=== PATIENT | female | born 1935 | race Caucasian/White ===

== ENCOUNTER → 2023-06-10 | Outpatient (CLI) | payer MEDICARE, SELFPAY ==
[2023-06-10 12:25] LABS: Absolute Lymphocyte Count 1.94 X10^3/uL (0.83-4.51); Absolute Neutrophil Count 5.2 X10^3/uL (2.0-7.7); Basophil# 0.05 X10^3/uL; Basophil% 0.6 % (0-1); Eosinophil# 0.32 X10^3/uL; Eosinophils% 3.9 % (0-5); Hematocrit 34.1 % (37-47); Hemoglobin 11.3 g/dL (12.0-15.0); Lymphocyte # 1.94 X10^3/ul (0.83-4.51); Lymphocyte % 23.9 % (19-41); Mean Corp Hgb Conc 33.1 g/dL (32-36); Mean Corpuscular Hgb 30.5 pg (27.0-32.0); Mean Corpuscular Volume 92.2 fL (81-99); Mean Platelet Vol. 11.8 fl (6.2-12.0); Monocyte# 0.62 X10^3/uL; Monocyte% 7.6 % (0-10); NRBC Flagged by Analyzer 0 % (0-5); Neutrophil # 5.17 X10^3/uL (2.7-7.7); Neutrophil % 63.8 % (47-70); Platelet Count 243 K/mm3 (150-450); RBC Distribution Width CV 13.6 % (11.6-14.6); RBC Distribution Width SD 46.5 fl (35.1-43.9); White Blood Count 8.1 K/mm3 (4.4-11.0)
[2023-06-10 13:04] LABS: Hemoglobin A1c 5.6 % (3.8-5.6)
[2023-06-10 13:06] LABS: ALB/GLOB Ratio 1.4 RATIO (0.9-2.4); AST(SGOT) 25 U/L (15-37); Alanine Aminotransfer ALT/SGPT 23 U/L (13-56); Albumin, Serum 4.1 g/dL (3.2-5.0); Alkaline Phosphatase 76 U/L (45-117); Anion Gap 8 (5-15); BUN 9 mg/dL (7-18); BUN/Creat Ratio 9.4 RATIO (10-20); Chloride 105 mmol/L (98-107); Cholesterol 119 mg/dL (200); Creatinine, Serum 0.95 mg/dL (0.55-1.02); EST Glomerular Filtration Rate 59 mL/min (>60); Est Glom Filt Rate - Afr Amer 71 mL/min (>60); Free T3 2.2 pg/mL (2.18-3.98); Glucose 80 mg/dL (74-106); High Density Lipoprotein 43 mg/dL; Potassium 3.3 mmol/L (3.5-5.1); Protein, Total 7.1 g/dL (6.4-8.2); Sodium Level 137 mmol/L (136-145); T4 Free Direct 1.39 ng/dL (0.76-1.46); Thyroid Stim Hormone (TSH) 2.92 uIU/mL (0.358-3.74); Triglycerides 92 mg/dL; Very Low Density Lipoprotein 18 mg/dL (5-40)
[2023-06-10 13:11] LABS: Microalbumin,Random Urine < 5.0 mg/L (NO RANGE EST.)
== END | disposition home or self-care (01) ==
LOC: BFHLAB 10:30
PROVIDERS: PCP Family Medicine; Referring Provider Family Medicine; Visit Provider Family Medicine
DX: E03.9 Hypothyroidism, unspecified (principal); E11.9 Type 2 diabetes mellitus without complications; R06.00 Dyspnea, unspecified; Z51.81 Encounter for therapeutic drug level monitoring; I25.10 Atherosclerotic heart disease of native coronary artery without angina pectoris; E78.5 Hyperlipidemia, unspecified
CPT/HCPCS: 36415; 80053; 80061; 82043; 82570; 83036; 84439; 84443; 84481; 85025

== ENCOUNTER 2023-09-24 12:55 | Emergency (ER) | payer MEDICARE, OTHER, SELFPAY ==
[2023-09-24 12:57] VITALS: BP 170/78; PULSE 62; RESP 18; TEMP 36.6; O2SAT 100; BMI 27.1
--- NOTE | 2023-09-24 13:13 | CT_ITS ---
STUDY: CT CERVICAL SPINE WITHOUT CONTRAST REASON FOR EXAM: Female, 88 years old. Fall RADIATION DOSAGE (If Supplied By Facility): CTDIvol = ( 18.63 ) mGy, DLP = ( 370.52 ) mGycm TECHNIQUE: High resolution transaxial imaging was performed without contrast material. Sagittal and coronal images were reconstructed. Individualized dose optimization techniques were used for this CT. COMPARISON: None FINDINGS: Normal craniovertebral junction. There are degenerative changes of the anterior atlantoaxial articulation. Normal odontoid process. There is straightening of the normal cervical lordosis. Normal vertebral bodies and posterior osseous elements. C2-3: Normal endplates. Normal disc height and morphology. Normal central canal and intervertebral neuroforamina. C3-4: Mild degree of disc space narrowing. Uncovertebral arthrosis. Bilateral neural foraminal stenosis. C4-5: Mild degree of disc space narrowing and spondylosis. Uncovertebral arthrosis. Bilateral neural foraminal stenosis worse on the left side. C5-6: Moderate degree of disc space narrowing and spondylosis. Uncovertebral arthrosis. Bilateral neural foraminal stenosis right greater than left. C6-7: Anterior spondylosis. C7-T1: Normal endplates. Normal disc height and morphology. Normal central canal and intervertebral neuroforamina. Atherosclerotic calcification of the carotid bifurcations. CT/Spine Cervical without Contras IMPRESSION: Multilevel degenerative changes, as described above. Electronically Signed: Puneet Olivas MD at 14:31 EDT ,
--- NOTE | 2023-09-24 13:13 | CT_ITS ---
STUDY: CT BRAIN WITHOUT CONTRAST REASON FOR EXAM: Female, 88 years old. Confusion RADIATION DOSAGE (If Supplied By Facility): CTDIvol = ( 47.06 ) mGy, DLP = ( 890.33 ) mGycm TECHNIQUE: Transaxial CT imaging of the brain was performed without administration of intravenous contrast material. Individualized dose optimization techniques were used for this CT. COMPARISON: No relevant priors. FINDINGS: Normal soft tissue structures. Normal calvarium. There is mild cerebral atrophy with widening of the extra-axial spaces and ventricular dilatation. There are areas of decreased attenuation within the white matter tracts of the supratentorial brain, consistent with microvascular disease changes. Normal basal ganglia and thalami. Normal brainstem. Normal cerebellum. There is no intracranial hemorrhage. There are no findings of an acute ischemic infarction. Atherosclerotic calcification of the vertebral arteries and cavernous portions of the internal carotid arteries bilaterally. Normal visualized paranasal sinuses. CT/Brain/Head without Contrast IMPRESSION: Chronic involutional changes of the brain. Electronically Signed: Puneet Olivas MD at 14:28 EDT ,
--- NOTE | 2023-09-24 13:21 | EX.ED.DYSGE1 ---
HPI <SANDRINE Benson - Last Filed: 09/24/23 17:29> History of Present Illness Chief Complaint: Back Narrative Narrative: 88-year-old female was brought in by EMS after an episode of confusion. Her daughter provides history because the patient has dementia. The patient has memory issues but normally ambulates and performs ADLs independently. This morning she used the bathroom and then went back to bed. The daughter checked on her around 9 am and she sat up on the edge of the bed and said she was fine and the daughter laid out her clothes for her. 30 minutes later she came back and she was still sitting on the edge of the bed with her arms and legs extended and stiff. The daughter and her later back in bed and she then was able to respond but did not want to talk much. There was no seizure activity. After lying her back down in bed she complained of back pain. She does have history of back issues and multiple surgeries. There was no evidence of a fall. She has had no recent illness. PFSH <SANDRINE Benson - Last Filed: 09/24/23 17:29> [facility] Home Medications ?Medication ?Instructions ?Recorded ?Last Taken ?Type tramadol 50 mg tablet 50 mg PO Q8H PRN pain 2 days #6 09/24/23 Unknown Rx tabs Allergy/AdvReac Type Severity Reaction Status Date / Time No Known Allergies Allergy Verified 09/24/23 12:57 Social History Smoking Status: Never smoker ROS <SANDRINE Benson - Last Filed: 09/24/23 17:29> ROS ED ROS Narrative Unable to obtain due to confusion EXAM <SANDRINE Benson - Last Filed: 09/24/23 17:29> Physical Exam Narrative Exam Narrative: CONST: Patient sitting in no acute distress. EYES: Normal inspection. HEAD: Head normocephalic atraumatic, no raccoon eyes or quinteros sign, no hemotympanum, no nasal septal hematoma, no CSF otorrhea or rhinorrhea. ENT: Normal inspection, moist mucous membranes. NECK: Normal inspection. No midline spinal tenderness, no step off or crepitus. RESP: No respiratory distress, CTAB. CVS: Regular rate and rhythm, no murmur, no gallop. ABD: Soft and nontender, no guarding or rebound, nondistended. Back: Normal inspection, no midline tenderness. Healed midline thoracic surgical scars. SKIN: Color normal, no rash, warm, dry, intact. EXTREMITIES: Normal appearance, moving upper and lower extremities, no bony tenderness, 2+ radial DP pulses. NEURO: Alert to self and place. Follows commands. Does not know age or year. PSYCH: Normal affect. Const Vital Signs: 09/24/23 12:57 09/24/23 15:06 09/24/23 17:00 Temperature 97.8 F Temperature Source Temporal Pulse Rate 62 64 Respiratory Rate 18 16 Blood Pressure 170/78 H Blood Pressure Mean 108 Pulse Ox 100 98 97 Oxygen Delivery Method Room Air Room Air 09/24/23 17:32 Temperature 97.6 F L Temperature Source Pulse Rate 78 Respiratory Rate 16 Blood Pressure 141/76 H Blood Pressure Mean 97 Pulse Ox 98 Oxygen Delivery Method <Dr. Ta Back DO - Last Filed: 09/24/23 19:28> Physical Exam Const Vital Signs: 09/24/23 12:57 09/24/23 15:06 09/24/23 17:00 Temperature 97.8 F Temperature Source Temporal Pulse Rate 62 64 Respiratory Rate 18 16 Blood Pressure 170/78 H Blood Pressure Mean 108 Pulse Ox 100 98 97 Oxygen Delivery Method Room Air Room Air 09/24/23 17:32 Temperature 97.6 F L Temperature Source Pulse Rate 78 Respiratory Rate 16 Blood Pressure 141/76 H Blood Pressure Mean 97 Pulse Ox 98 Oxygen Delivery Method [facility] <SANDRINE Benson - Last Filed: 09/24/23 17:29> [facility] Narrative Medical decision making narrative: History gathered from: Patient, daughter, EMS Daughter reports patient was sitting on the edge of the bed and had an episode where she held out her arms and legs in a stiff position. There was no loss of consciousness or convulsions. She has dementia and seems more confused than normal. During my initial exam she is awake and alert x 2 with no focal neurological deficits. No signs of injury. Before her daughter arrived the initial EMS report was that she had a fall so I ordered imaging of her brain, cervical spine and back as she had reported back pain (although she did not have any spinal tenderness on exam she has history of multiple back surgeries). CT and x-ray imaging are all negative for acute findings. CBC and BMP do not show any significant abnormalities that would cause her symptoms. Urinalysis negative. EKG is nonischemic and serial troponins negative. Patient complained of back pain while here. Her family states she has a internal spinal stimulator that they think is no longer functioning. She had a pain management doctor out of state that since she is moved here is not established with a pain specialist. She is taking Tylenol and Lyrica. She was given a dose of Tylenol here and is able to ambulate and family is comfortable taking her home. Her daughter really wanted her to have something stronger for breakthrough pain so I prescribed a short course of tramadol. I discussed side effects and risks including sedation falls confusion etc. and she states she will monitor. I will call the family physician for follow-up. She was discharged in stable condition. Lab Data Attestation: I reviewed the patient's lab results. Labs: Laboratory Results - last 24 hr 09/24/23 09/24/23 09/24/23 13:26 15:27 16:50 WBC 11.1 H RBC 4.16 L Hgb 12.7 Hct 36.4 L MCV 87.5 MCH 30.5 MCHC 34.9 RDW Std Deviation 42.5 RDW Coeff of Ross 13.2 Plt Count 244 MPV 10.5 Immature Gran % (Auto) 0.900 Neut % (Auto) 72.7 H Lymph % (Auto) 15.9 L Schuyler % (Auto) 8.7 Eos % (Auto) 1.3 Baso % (Auto) 0.5 Absolute Neuts (auto) 8.1 H Absolute Lymphs (auto) 1.77 Nucleated RBC % 0 Sodium 139 Potassium 3.4 L Chloride 106 Carbon Dioxide 22.0 Anion Gap 11 BUN 16 Creatinine 1.11 H Estim Creat Clear Calc 36.62 Est GFR (MDRD) Af Amer 60 Est GFR (MDRD) Non-Af 50 L BUN/Creatinine Ratio 14.4 Glucose 83 Calcium 9.8 Troponin I High Sens 18 20 Urine Color Straw Urine Clarity Clear Urine pH 8.0 Ur Specific [place] 1.010 Urine Protein Negative Urine Glucose (UA) Normal Urine Ketones Negative Urine Occult Blood Negative Urine Nitrite Negative Urine Bilirubin Negative Urine Urobilinogen Normal Ur Leukocyte Esterase Negative Urine RBC 0-5 SEEN Urine WBC 0-5 SEEN Ur Squamous Epith Cells 0-5 SEEN Urine Bacteria 1+ Urine Mucus 0 SEEN Radiography Diagnostic Testing: Clinical Impression(s) from Imaging Studies Brain CT 09/24/23 13:13 IMPRESSION: Chronic involutional changes of the brain. Electronically Signed: Puneet Olivas MD at 14:28 EDT , Cervical Spine CT 09/24/23 13:13 IMPRESSION: Multilevel degenerative changes, as described above. Electronically Signed: Puneet Olivas MD at 14:31 EDT , Chest X-Ray 09/24/23 14:40 IMPRESSION: Hyperinflation. The lungs are clear. Electronically Signed: Puneet Oliavs MD at 15:03 EDT , Lumbar Spine X-Ray 09/24/23 14:40 IMPRESSION: Degenerative changes of the spine, as detailed above. Loss of the normal lumbar lordosis. Electronically Signed: Puneet Olivas MD at 15:02 EDT , Thoracic Spine X-Ray 09/24/23 14:40 IMPRESSION: Loss of the normal thoracic kyphosis. Demineralization of the vertebrae with multilevel spondylosis and disc space narrowing. Electronically Signed: Puneet Olivas MD at 15:01 EDT , ED attending interpretation 1 view chest x-ray shows normal heart size, no evidence of infiltrate. ED attending interpretation of thoracic and lumbar spine show no acute fractures. EKG Initial EKG: Attestation: I personally reviewed and interpreted this EKG as follows: Interpretation: Sinus Rhythm and No Acute Injury Pattern Comments: Sinus bradycardia with sinus arrhythmia at 59 bpm, occasional PVCs Incomplete RBBB No acute STEMI criteria Repeat EKG at 1559 has no significant change Sinus rhythm 71 bpm occasional PVCs <Dr. Ta Back, DO - Last Filed: 09/24/23 19:28> [facility] Lab Data Labs: Laboratory Results - last 24 hr 09/24/23 09/24/23 09/24/23 13:26 15:27 16:50 WBC 11.1 H RBC 4.16 L Hgb 12.7 Hct 36.4 L MCV 87.5 MCH 30.5 MCHC 34.9 RDW Std Deviation 42.5 RDW Coeff of Ross 13.2 Plt Count 244 MPV 10.5 Immature Gran % (Auto) 0.900 Neut % (Auto) 72.7 H Lymph % (Auto) 15.9 L Schuyler % (Auto) 8.7 Eos % (Auto) 1.3 Baso % (Auto) 0.5 Absolute Neuts (auto) 8.1 H Absolute Lymphs (auto) 1.77 Nucleated RBC % 0 Sodium 139 Potassium 3.4 L Chloride 106 Carbon Dioxide 22.0 Anion Gap 11 BUN 16 Creatinine 1.11 H Estim Creat Clear Calc 36.62 Est GFR (MDRD) Af Amer 60 Est GFR (MDRD) Non-Af 50 L BUN/Creatinine Ratio 14.4 Glucose 83 Calcium 9.8 Troponin I High Sens 18 20 Urine Color Straw Urine Clarity Clear Urine pH 8.0 Ur Specific [place] 1.010 Urine Protein Negative Urine Glucose (UA) Normal Urine Ketones Negative Urine Occult Blood Negative Urine Nitrite Negative Urine Bilirubin Negative Urine Urobilinogen Normal Ur Leukocyte Esterase Negative Urine RBC 0-5 SEEN Urine WBC 0-5 SEEN Ur Squamous Epith Cells 0-5 SEEN Urine Bacteria 1+ Urine Mucus 0 SEEN Radiography Diagnostic Testing: Clinical Impression(s) from Imaging Studies Brain CT 09/24/23 13:13 IMPRESSION: Chronic involutional changes of the brain. Electronically Signed: Puneet Olivas MD at 14:28 EDT , Cervical Spine CT 09/24/23 13:13 IMPRESSION: Multilevel degenerative changes, as described above. Electronically Signed: Puneet Olivas MD at 14:31 EDT , Chest X-Ray 09/24/23 14:40 IMPRESSION: Hyperinflation. The lungs are clear. Electronically Signed: Puneet Olivas MD at 15:03 EDT , Lumbar Spine X-Ray 09/24/23 14:40 IMPRESSION: Degenerative changes of the spine, as detailed above. Loss of the normal lumbar lordosis. Electronically Signed: Puneet Olivas MD at 15:02 EDT , Thoracic Spine X-Ray 09/24/23 14:40 IMPRESSION: Loss of the normal thoracic kyphosis. Demineralization of the vertebrae with multilevel spondylosis and disc space narrowing. Electronically Signed: Puneet Olivas MD at 15:01 EDT , Treatment and Re-Evaluation :: I have personally performed a face to face assessment of the patient and have reviewed the LISA Note. I performed a substantive portion of the visit including all aspects of the following. My yancey findings include: History: Patient presents with confusion that became worse today. Patient has a history of dementia but normally can function at home without difficulty. Family states that they laid her clothes out for her to get dressed. When they went to recheck her to see if she had gotten dressed, she was sitting on the bed with her arms and legs extended. Family states patient is more confused today. Family denies any fevers or chills. Family denies any falls however, EMS reports that there was a fall. Patient admits to some chest pressure and heaviness. Patient denies any shortness of breath. Patient denies any urinary complaints. Exam: Vital signs are stable except for an elevated blood pressure of 170/78. Patient is afebrile. Patient is in no acute distress. Oral mucosa is pink and moist. Neck is supple. Trachea is midline. There is no JVD. Heart was regular rate and rhythm. Lungs are clear and equal bilaterally. Abdomen is soft. Bowel sounds are normal. There is no tenderness. Cranial nerves II through XII are intact. There are no focal motor or sensory deficits noted. Medical Decision Making: Differential diagnosis includes cardiac dysrhythmia, cardiac ischemia, stroke, fall, intracranial bleeding, lumbar fracture, thoracic fracture, pneumonia, urinary tract infection, and electrolyte abnormality. EKG will be obtained to assess for cardiac dysrhythmia and cardiac ischemia. Chest x-ray will be obtained to assess for pneumonia and pneumothorax. Lumbar spine x-rays will be obtained to assess for fracture and spondylolisthesis. Thoracic spine x-rays will be obtained to assess for fracture. CT scan of the brain will be obtained to assess for intracranial bleeding and stroke. CT scan of the cervical spine will be obtained to assess for cervical spine fracture and spondylolisthesis. CBC will be obtained to assess for leukocytosis and anemia. Basic metabolic profile will be obtained to assess for electrolyte abnormality and renal function. Urinalysis will be obtained to assess for urinary tract infection and hematuria. High-sensitivity troponin will be obtained to assess for cardiac ischemia. EKG was obtained. On my independent interpretation, it showed sinus bradycardia with a rate of 59. There is an incomplete right bundle branch block pattern noted. There are no acute ST or T wave changes noted. Portable 1 view chest x-ray was obtained. On my independent interpretation, lung matthews are clear. There is normal cardiac silhouette. Bony thorax is normal. There is no acute process noted. Radiologist also interpreted the x-ray and agrees. X-rays of the thoracic spine were obtained. There are 4 views. On my independent interpretation, there is no acute fracture or spondylolisthesis noted. There are some degenerative changes noted. Radiologist also interpreted the x-rays and agrees. X-rays of the lumbar spine were obtained. There are 2 views. There is a scoliosis noted. There is no acute fracture noted. There are degenerative changes noted. Radiologist also interpreted the x-rays and agrees. CT scan of the brain was obtained. There is no acute intracranial abnormality. There are chronic involutional changes noted. This was interpreted by the radiologist and was also independently reviewed by myself. CT scan of the cervical spine was obtained. There is no acute fracture or spondylolisthesis noted. This was interpreted by the radiologist and was also independently reviewed by myself. CBC was reviewed. There is a slight leukocytosis of 11.1. The remainder was within normal limits. Basic metabolic profile was reviewed and was essentially within normal limits. Initial high-sensitivity troponin was reviewed and was normal at 18. Urinalysis was reviewed. There is no evidence of urinary tract infection or hematuria. Patient was able to ambulate here in the emergency department with a walker. Family is comfortable taking the patient home. Patient and family were instructed to follow-up with her primary care physician in 5 to 7 days. Patient and family understood and were agreeable with the plan. All questions were answered. Discharge Plan Triage Chief Complaint: Back ED Midlevel Provider: Octavia Reina ED Provider: Ta Back Dx/Rx/DC Orders Clinical Impression: Chronic back pain, History of dementia Instructions: Back Basics: A Healthy Spine Prescriptions: New tramadol 50 mg tablet 50 mg PO Q8H PRN (Reason: pain) 2 Days Qty: 6 0RF Primary Care Provider: Octavia Goins Referrals: Octavia Goins DO [Primary Care Provider] - Activity Restrictions/Additional Instructions: Her testing today does not show any abnormalities to explain the episode she had this morning. I recommend Tylenol as needed for her back pain and follow-up with her primary care doctor. If she has new or worsening symptoms please come back for reevaluation. Print Language: Egyptian Disposition Disposition: Home, Self Care Discharge Date/Time: 09/24/23 17:33
--- NOTE | 2023-09-24 13:33 | EKG12_ITS ---
Test Reason : Blood Pressure : / mmHG Vent. Rate : 059 BPM Atrial Rate : 059 BPM P-R Int : 196 ms QRS Dur : 098 ms QT Int : 474 ms P-R-T Axes : -28 040 067 degrees QTc Int : 469 ms Sinus bradycardia with sinus arrhythmia with occasional Premature ventricular complexes Incomplete right bundle branch block Septal infarct , age undetermined Abnormal ECG Confirmed by DARREN RIVERA, WILFRED ([id number]), supervising film or videotape editor MALICK BARONE ([id number]) on 09/27/2023 9:45:08 AM Referred By: Confirmed By:IVIS BANKS MD
--- NOTE | 2023-09-24 13:40 | NURSING ---
NO OLD EKGS
[2023-09-24 13:48] LABS: Mucous, Urine 0 SEEN /hpf (<or=2+)
[2023-09-24 14:08] LABS: Color, Urine Straw (Yellow); Glucose, Dipstick Normal (Normal); Ketone-Dipstick Negative (Negative); Leukocyte Esterase-Dipstick Negative /ul (Negative); Nitrite-Dipstick Negative (Negative); Occult Blood-Urine Negative /ul (Negative); Protein-Dipstick Negative (Negative); Urine Bilirubin Dipstick Negative (Negative); Urine Clarity Clear (Clear); Urine Urobilinogen Normal (Normal)
[2023-09-24 14:30] LABS: Red Blood Cells-Urine 0-5 SEEN /hpf (0-5); White Blood Cells 0-5 SEEN /hpf (0-5)
[2023-09-24 14:31] LABS: Bacteria 1+ /hpf (None Seen); Squamous Epithelial Cells - UA 0-5 SEEN /hpf (5-10)
--- NOTE | 2023-09-24 14:40 | RAD_ITS ---
STUDY: X-RAY - LUMBAR SPINE REASON FOR EXAM: Female, 88 years old. Back pain. TECHNIQUE: 2 view(s) of the lumbar spine were obtained. COMPARISON: None FINDINGS: There is straightening of the normal lumbar lordosis. There is a levoscoliosis of the lumbar spine. There is a normal alignment of the vertebrae. There is multilevel endplate spondylosis of the lumbar vertebrae. There is multi-level degenerative disc disease with multi-level disc space narrowing. Facet joint osteoarthritis and hypertrophy. There is atherosclerotic calcification of the abdominal aorta without a demonstrated aneurysm. RAD/Lumbar Spine 2 or 3 Views IMPRESSION: Degenerative changes of the spine, as detailed above. Loss of the normal lumbar lordosis. Electronically Signed: Puneet Olivas MD at 15:02 EDT ,
--- NOTE | 2023-09-24 14:40 | RAD_ITS ---
STUDY: X-RAY - THORACIC SPINE REASON FOR EXAM: Female, 88 years old. Back pain following a fall. TECHNIQUE: 3 view(s) of the thoracic spine were obtained. COMPARISON: None. FINDINGS: There is straightening of the normal thoracic kyphosis. There is no substantial scoliosis. There is demineralization of the thoracic spine with endplate spondylosis. There is multilevel disc space narrowing of the thoracic spine. Electrodes from a spinal cord stimulator device is seen at the T7-T8 level. The soft tissue structures are unremarkable. RAD/Thoracic Spine 3 Views IMPRESSION: Loss of the normal thoracic kyphosis. Demineralization of the vertebrae with multilevel spondylosis and disc space narrowing. Electronically Signed: Puneet Olivas MD at 15:01 EDT ,
--- NOTE | 2023-09-24 14:40 | RAD_ITS ---
STUDY: X-RAY CHEST REASON FOR EXAM: Female, 88 years old. Weakness TECHNIQUE: Single AP portable view of the chest. COMPARISON: None. FINDINGS: Hyperinflation. There is no demonstrated pleural abnormality. Sternal cerclage wires and vascular clips are present from a prior sternotomy and coronary artery bypass graft procedure (CABG). Normal mediastinum and joselin. Normal visualized pulmonary arteries. There is atherosclerotic calcification of the aortic arch with tortuosity. There are diffuse degenerative changes of the visualized thoracic spine. Normal visualized ribs, clavicles, and shoulders. There is no demonstrated abnormality of the visualized soft tissue structures of the upper abdomen. RAD/Chest 1 View (Portable) IMPRESSION: Hyperinflation. The lungs are clear. Electronically Signed: Puneet Olivas MD at 15:03 EDT ,
[2023-09-24 15:06] VITALS: O2SAT 98
[2023-09-24 15:38] LABS: Absolute Lymphocyte Count 1.77 X10^3/uL (0.83-4.51); Absolute Neutrophil Count 8.1 X10^3/uL (2.0-7.7); Basophil# 0.06 X10^3/uL; Basophil% 0.5 % (0-1); Eosinophil# 0.15 X10^3/uL; Eosinophils% 1.3 % (0-5); Hematocrit 36.4 % (37-47); Hemoglobin 12.7 g/dL (12.0-15.0); Lymphocyte # 1.77 X10^3/ul (0.83-4.51); Lymphocyte % 15.9 % (19-41); Mean Corp Hgb Conc 34.9 g/dL (32-36); Mean Corpuscular Hgb 30.5 pg (27.0-32.0); Mean Corpuscular Volume 87.5 fL (81-99); Mean Platelet Vol. 10.5 fl (6.2-12.0); Monocyte# 0.97 X10^3/uL; Monocyte% 8.7 % (0-10); NRBC Flagged by Analyzer 0 % (0-5); Neutrophil # 8.08 X10^3/uL (2.7-7.7); Neutrophil % 72.7 % (47-70); Platelet Count 244 K/mm3 (150-450); RBC Distribution Width CV 13.2 % (11.6-14.6); RBC Distribution Width SD 42.5 fl (35.1-43.9); Red Blood Count 4.16 M/mm3 (4.2-5.4); White Blood Count 11.1 K/mm3 (4.4-11.0)
[2023-09-24 15:51] LABS: Anion Gap 11 (5-15); BUN 16 mg/dL (7-18); BUN/Creat Ratio 14.4 RATIO (10-20); Calcium,Total 9.8 mg/dL (8.5-10.1); Chloride 106 mmol/L (98-107); Creatinine, Serum 1.11 mg/dL (0.55-1.02); EST Glomerular Filtration Rate 50 mL/min (>60); Est Glom Filt Rate - Afr Amer 60 mL/min (>60); Estimated Creatinine Clearance 36.62 ml/min; Glucose 83 mg/dL (74-106); Potassium 3.4 mmol/L (3.5-5.1); Sodium Level 139 mmol/L (136-145)
--- NOTE | 2023-09-24 15:53 | EKG12_ITS ---
Test Reason : REPEAT CP Blood Pressure : / mmHG Vent. Rate : 071 BPM Atrial Rate : 071 BPM P-R Int : 192 ms QRS Dur : 098 ms QT Int : 484 ms P-R-T Axes : 037 028 -23 degrees QTc Int : 525 ms Sinus rhythm with marked sinus arrhythmia with occasional Premature ventricular complexes Septal infarct , age undetermined Prolonged QT Abnormal ECG Confirmed by DARREN RIVERA, WILFRED ([id number]), movie editor MALICK BARONE ([id number]) on 09/27/2023 9:45:32 AM Referred By: Confirmed By:IVIS BANKS MD
[2023-09-24 16:32] LABS: Troponin-I HS 18 pg/mL (3.0-54.0)
[2023-09-24 17:00] VITALS: PULSE 64; RESP 16; O2SAT 97
[2023-09-24 17:12] LABS: Troponin-I HS 20 pg/mL (3.0-54.0)
[2023-09-24] MEDS: Acetaminophen 325 MG Tablet 650 MG PO (17:15)
[2023-09-24 17:32] VITALS: BP 141/76; PULSE 78; RESP 16; TEMP 36.4; O2SAT 98
== END 2023-09-24 17:33 | disposition home or self-care (01) ==
PROVIDERS: Physician Assistant; Emergency Provider Emergency Medicine; PCP Family Medicine; Visit Provider Emergency Medicine
DX: G89.29 Other chronic pain (principal); F03.90 Unspecified dementia, unspecified severity, without behavioral disturbance, psychotic disturbance, mood disturbance, and anxiety; M54.9 Dorsalgia, unspecified
CPT/HCPCS: 36415; 70450; 71045; 72072; 72100; 72125; 80048; 81001; 84484; 85025; 93005; 99282; A4216

== ENCOUNTER 2023-10-15 20:42 | Inpatient (IN) | payer MEDICARE, OTHER, SELFPAY ==
[2023-10-15 20:43] VITALS: BP 149/74; PULSE 67; RESP 11; TEMP 36.4; O2SAT 100; BMI 27.9
--- NOTE | 2023-10-15 21:19 | EKG12_ITS ---
Test Reason : Blood Pressure : / mmHG Vent. Rate : 068 BPM Atrial Rate : 068 BPM P-R Int : 188 ms QRS Dur : 096 ms QT Int : 466 ms P-R-T Axes : 028 038 017 degrees QTc Int : 495 ms Sinus rhythm with sinus arrhythmia with occasional Premature ventricular complexes Cannot rule out Septal infarct , age undetermined Abnormal ECG Confirmed by Calin Mota ([id number]), editor dictionary MALICK BARONE ([id number]) on 10/18/2023 10:42:17 AM Referred By: NOEL Confirmed By:Calin Mota
--- NOTE | 2023-10-15 21:19 | CT_ITS ---
STUDY: CT BRAIN WITHOUT CONTRAST REASON FOR EXAM: Female, 88 years old. ams RADIATION DOSAGE (If Supplied By Facility): CTDIvol = ( 44.99 ) mGy, DLP = ( 829.85 ) mGycm TECHNIQUE: Transaxial CT imaging of the brain was performed without administration of intravenous contrast material. Individualized dose optimization techniques were used for this CT. COMPARISON: No relevant priors. FINDINGS: Normal soft tissue structures. Normal calvarium. Prominent ventricles and extra-axial spaces with atrophy. Bilateral white matter microangiopathic ischemic changes of the cerebral hemispheres. Normal basal ganglia and thalami. Normal brainstem. Normal cerebellum. There is no intracranial hemorrhage. There are no findings of an acute ischemic infarction. Normal visualized paranasal sinuses. CT/Brain/Head without Contrast IMPRESSION: Age-related changes of the brain. Electronically Signed: Iam Witt DO at 23:23 EDT ,
[2023-10-15 22:01] LABS: Absolute Lymphocyte Count 1.59 X10^3/uL (0.83-4.51); Absolute Neutrophil Count 8.4 X10^3/uL (2.0-7.7); Basophil# 0.05 X10^3/uL; Basophil% 0.4 % (0-1); Eosinophil# 0.24 X10^3/uL; Eosinophils% 2.2 % (0-5); Hematocrit 36.6 % (37-47); Hemoglobin 12.3 g/dL (12.0-15.0); Lymphocyte # 1.59 X10^3/ul (0.83-4.51); Lymphocyte % 14.3 % (19-41); Mean Corp Hgb Conc 33.6 g/dL (32-36); Mean Corpuscular Hgb 30.3 pg (27.0-32.0); Mean Corpuscular Volume 90.1 fL (81-99); Mean Platelet Vol. 10.8 fl (6.2-12.0); Monocyte# 0.83 X10^3/uL; Monocyte% 7.4 % (0-10); NRBC Flagged by Analyzer 0 % (0-5); Neutrophil # 8.38 X10^3/uL (2.7-7.7); Neutrophil % 75.2 % (47-70); Platelet Count 285 K/mm3 (150-450); RBC Distribution Width CV 12.9 % (11.6-14.6); RBC Distribution Width SD 42.7 fl (35.1-43.9); Red Blood Count 4.06 M/mm3 (4.2-5.4); White Blood Count 11.2 K/mm3 (4.4-11.0)
[2023-10-15 22:06] VITALS: BP 142/72; PULSE 62; RESP 25; TEMP 37.1; O2SAT 95
[2023-10-15 22:10] LABS: Bacteria 0 SEEN /hpf (None Seen); Mucous, Urine 0 SEEN /hpf (<or=2+); Red Blood Cells-Urine 0 SEEN /hpf (0-5); Squamous Epithelial Cells - UA 0 SEEN /hpf (5-10); White Blood Cells 0 SEEN /hpf (0-5)
--- NOTE | 2023-10-15 22:14 | EX.ED.DYSGE1 ---
HPI History of Present Illness Chief Complaint: Alt LOC Informant: patient, family and EMS Narrative Narrative: 88-year-old female history of dementia chronic back pain presenting to the emergency room with a chief complaint of altered mental status. Patient was seen recently after moving to the area for her chronic pain. She has some type of med pack it sounds like maybe a spinal stimulator that is not working in the back. She was given tramadol and followed up with her primary care doctor and was given oxycodone. This was not working so they prescribed her fentanyl patch which resulted in hallucinations. She was then changed to Lyrica 100 mg twice daily on Wednesday. Family states that she has significantly altered mental status and not her normal self. No reported fevers. Patient herself cannot provide me any meaningful information stating I need you to fix my legs brandie. [facility] Medical History unable to obtain Home Medications ?Medication ?Instructions ?Recorded ?Last Taken ?Type aspirin 81 mg chewable tablet 1 tab PO DAILY 10/15/23 10/15/23 History (Aspirin Childrens) atorvastatin 80 mg tablet 80 mg PO DAILY 10/15/23 10/15/23 History carvedilol 3.125 mg tablet 3.125 mg PO DAILY 10/15/23 10/15/23 History clopidogrel 75 mg tablet 75 mg PO DAILY 10/15/23 10/15/23 History escitalopram oxalate 10 mg tablet 10 mg PO DAILY 10/15/23 10/15/23 History furosemide 20 mg tablet 20 mg PO DAILY 10/15/23 10/15/23 History levothyroxine 50 mcg tablet 50 mcg PO DAILY 10/15/23 10/15/23 History (Levo-T) lisinopril 20 mg tablet 20 mg PO QHS 10/15/23 10/14/23 History metoprolol tartrate 25 mg tablet 25 mg PO BID 10/15/23 10/15/23 History pregabalin 100 mg capsule 100 mg PO BID 10/15/23 10/15/23 History sitagliptin phosphate 100 mg 100 mg PO DAILY 10/15/23 10/15/23 History tablet (Januvia) trazodone 50 mg tablet 50 mg PO QHS 10/15/23 10/14/23 History Allergy/AdvReac Type Severity Reaction Status Date / Time No Known Allergies Allergy Verified 10/15/23 20:55 Family History unable to obtain Surgical History unable to obtain Social History Smoking Status: Former smoker ROS ROS ED Review of Systems ROS Unobtainable: due to mental status EXAM Physical Exam Const Vital Signs: 10/15/23 20:43 10/15/23 22:06 10/15/23 23:00 Temperature 97.5 F L 98.8 F 98.8 F Temperature Source Temporal Oral Oral Pulse Rate 67 62 66 Respiratory Rate 11 L 25 H 21 H Blood Pressure 149/74 H 142/72 H 158/80 H Blood Pressure Mean 99 95 106 Pulse Ox 100 95 94 Oxygen Delivery Method Room Air Room Air Room Air 10/16/23 00:00 10/16/23 01:35 Temperature 98.1 F Temperature Source Temporal Pulse Rate 68 61 Respiratory Rate 17 25 H Blood Pressure 122/78 H 166/84 H Blood Pressure Mean 92 111 Pulse Ox 98 99 Oxygen Delivery Method Room Air Room Air Positive well nourished, well developed and obese General Appearance ED: well developed Nutritional Appearance: obese HEENT Reports normocephalic, head/scalp atraumatic and moist mucous membranes Eyes PERRL and EOMs intact bilaterally Neck no lymphadenopathy, supple and no JVD Resp clear to auscultation bilaterally Resp Narrative: Patient seems tachypneic at rest Cardio regular rate, regular rhythm and no murmurs GI normal to inspection, nondistended, normoactive bowel sounds and non-tender Palpation: soft Back/Spine no CVA tenderness and normal ROM Extremity normal to inspection General Extremety ED: Negative for edema General Extremity: Negative for edema Neuro CN's II-XII intact bilaterally Neuro Narrative: Patient moans when we rolled her onto her left side. Sensorium / Orientation: lethargic Motor Exam: strength 5/5 throughout Psych mental status grossly normal Mood & Affect: Negative for depressed or tearful Skin no rashes or lesions noted and no wounds MDM MDM MDM Narrative Medical decision making narrative: Differential diagnosis includes but not limited to dehydration stroke multiple forms of encephalopathy UTI pneumonia electrolyte imbalance acid-base disturbance bacteremia toxidrome CT the brain shows no acute findings. My independent interpretation of the chest x-ray is no acute process. White count nonspecifically elevated 11.2 hemoglobin 12.3 platelet count 285. BMP shows a CO2 of 19 anion gap of 12 BUN of 21 creatinine 1.15. Lactic acid elevated 2.1 of uncertain etiology. Urinalysis shows no overt infection. Toxicology on urine and alcohol is negative. Lipase 59. BNP 405 troponin 30 total bilirubin is 2.1 with a direct of 0.5 to normal transaminases and alk phos. Glucose is 94. Patient received gentle hydration. Obtained initial ABG which shows very odd pattern. pH returned at 7.7 bicarb 12.3 PaCO2 9.6 PaO2 of 99. I asked for second ABG after some time has passed and she had received IV fluids. At this point the pH is 7.6 PaCO2 17.3 bicarb 16.7 suggestive of a metabolic alkalosis with secondary respiratory acidosis. I do not have a clear etiology for the patient's mental status. She does have an underlying dementia which certainly complicates things. History & Record Review Discussion w/independent historian: Patient and Family Additional record(s) reviewed:: Prior ED visit and Prior labs Lab Data Attestation: I reviewed the patient's lab results. Labs: Laboratory Results - last 24 hr 10/15/23 10/15/23 10/15/23 21:44 21:50 21:54 WBC 11.2 H RBC 4.06 L Hgb 12.3 Hct 36.6 L MCV 90.1 MCH 30.3 MCHC 33.6 RDW Std Deviation 42.7 RDW Coeff of Ross 12.9 Plt Count 285 MPV 10.8 Immature Gran % (Auto) 0.500 Neut % (Auto) 75.2 H Lymph % (Auto) 14.3 L [place] % (Auto) 7.4 Eos % (Auto) 2.2 Baso % (Auto) 0.4 Absolute Neuts (auto) 8.4 H Absolute Lymphs (auto) 1.59 Nucleated RBC % 0 PT 14.2 INR 1.1 APTT 32.3 Sodium 139 Potassium 3.5 Chloride 108 H Carbon Dioxide 19.0 L Anion Gap 12 BUN 21 H Creatinine 1.15 H Estim Creat Clear Calc 37.13 Est GFR (MDRD) Af Amer 58 L Est GFR (MDRD) Non-Af 48 L BUN/Creatinine Ratio 18.3 Glucose 94 Lactic Acid 2.1 H* Calcium 9.3 Total Bilirubin 2.10 H Direct Bilirubin 0.52 H AST 24 ALT 23 Alkaline Phosphatase 82 Troponin I High Sens 30 B-Natriuretic Peptide 405.1 H Total Protein 7.6 Albumin 3.7 Globulin 3.9 Lipase 59 Urine Color Yellow Urine Clarity Clear Urine pH 8.0 Ur Specific [place] 1.010 Urine Protein Negative Urine Glucose (UA) Normal Urine Ketones 5 H Urine Occult Blood Negative Urine Nitrite Negative Urine Bilirubin Negative Urine Urobilinogen 1 H Ur Leukocyte Esterase Negative Urine RBC 0 SEEN Urine WBC 0 SEEN Ur Squamous Epith Cells 0 SEEN Urine Bacteria 0 SEEN Urine Mucus 0 SEEN Urine Opiates Screen NEGATIVE Urine Methadone Screen NEGATIVE Ur Barbiturates Screen NEGATIVE Ur Phencyclidine Scrn NEGATIVE Ur Amphetamines Screen NEGATIVE MDMA (Ecstasy) Screen NEGATIVE U Benzodiazepines Scrn NEGATIVE Urine Cocaine Screen NEGATIVE U Cannabinoids Screen NEGATIVE Ur Drug Screen Comment Ethyl Alcohol < 3.0 ABG Data ABG results: ABG 10/15/23 10/16/23 22:11 01:13 Specimen Type ART ART Sample Site L Radial L Radial pH 7.72 H* 7.60 H* Bicarbonate Actual 12.3 L 16.7 L Total CO2 13 17 Base Excess -7 L -5 L O2 Saturation 99 98 O2 % 21.0 ABG pCO2 9.6 L* 17.3 L* ABG pO2 99 81 Jameel Test Positive Positive O2 Delivery Device Room Air Room Air Vent Mode Not entered Not entered Crit Call To/Read Back Yes Yes Blood Gas Notified Whom edd Guevara Blood Gas Notified Time 22:13:22 01:15:15 Radiography Diagnostic Testing: Clinical Impression(s) from Imaging Studies Brain CT 10/15/23 21:19 IMPRESSION: Age-related changes of the brain. Electronically Signed: Iam Witt DO at 23:23 EDT , Chest X-Ray 10/15/23 23:13 IMPRESSION: No radiographic evidence of acute cardiopulmonary disease. Electronically Signed: Iam Witt DO at 23:53 EDT , EKG Initial EKG: Attestation: I personally reviewed and interpreted this EKG as follows: Comments: Sinus rhythm with a ventricular rate of 68 bpm. Management Discussion w/another healthcare provider: Hospitalist (Eder) Discharge Plan Dx/Rx/DC Orders Clinical Impression: Altered mental status, Dementia, Hypertension, Diabetes, Metabolic alkalosis with respiratory acidosis Disposition Disposition: Acute Care Hospital [facility]
[2023-10-15 22:15] LABS: International Normalized Ratio 1.1; Prothrombin Time (Protime)PT. 14.2 SECONDS (11.7-14.9)
[2023-10-15 22:16] LABS: Allen Test Positive; Base Excess -7 mmol/L (-2 to +2); Bicarbonate 12.3 mmol/L (22-26); Blood Gas Specimen Type ART; Mode Not entered; O2 Delivery Device Room Air; PO2 99 mmHG (75-100); SITE L Radial; SO2 99 % (95-99); Total Carbon Dioxide 13 mmol/L; pCO2 9.6 mmHg (35-45); pH 7.72 (7.35-7.45)
[2023-10-15 22:16] LABS: Partial Thromboplast Time 32.3 Seconds (24.1-36.2)
[2023-10-15] MEDS: 0.9% Normal Saline (1000mL) 1,000 ML 150 ML IV (22:18)
[2023-10-15 22:20] LABS: Alcohol, Blood (Medical)-Serum < 3.0 mg/dL
[2023-10-15 22:27] LABS: AST(SGOT) 24 U/L (15-37); Alanine Aminotransfer ALT/SGPT 23 U/L (13-56); Albumin, Serum 3.7 g/dL (3.2-5.0); Alkaline Phosphatase 82 U/L (45-117); Anion Gap 12 (5-15); BUN 21 mg/dL (7-18); BUN/Creat Ratio 18.3 RATIO (10-20); Bilirubin, Direct 0.52 mg/dL (0.00-0.30); Calcium,Total 9.3 mg/dL (8.5-10.1); Chloride 108 mmol/L (98-107); Creatinine, Serum 1.15 mg/dL (0.55-1.02); EST Glomerular Filtration Rate 48 mL/min (>60); Est Glom Filt Rate - Afr Amer 58 mL/min (>60); Estimated Creatinine Clearance 37.13 ml/min; Globulin 3.9 g/dL (2.2-4.2); Glucose 94 mg/dL (74-106); Lipase 59 U/L (13-75); Potassium 3.5 mmol/L (3.5-5.1); Protein, Total 7.6 g/dL (6.4-8.2); Sodium Level 139 mmol/L (136-145); Troponin-I HS 30 pg/mL (3.0-54.0)
[2023-10-15 22:30] LABS: BNP,B-Type NATRIURETIC PEPTIDE 405.1 pg/mL (0-100)
[2023-10-15 22:37] LABS: Color, Urine Yellow (Yellow); Glucose, Dipstick Normal (Normal); Ketone-Dipstick 5 mg/dl (Negative); Leukocyte Esterase-Dipstick Negative /ul (Negative); Nitrite-Dipstick Negative (Negative); Occult Blood-Urine Negative /ul (Negative); Protein-Dipstick Negative (Negative); Urine Bilirubin Dipstick Negative (Negative); Urine Clarity Clear (Clear); Urine Urobilinogen 1 mg/dl (Normal)
[2023-10-15 22:40] LABS: Amphetamine Urine VISTA NEGATIVE (<1000 ng/mL); Barbiturate Urine VISTA NEGATIVE (< 200 ng/mL); Benzodiazepine Urine VISTA NEGATIVE (< 200 ng/mL); Cocaine Urine VISTA NEGATIVE (< 300 ng/mL); Ecstacy Urine VISTA NEGATIVE (< 500 ng/mL); Methadone Urine VISTA NEGATIVE (< 300 ng/mL); PCP Urine VISTA NEGATIVE (< 25 ng/mL); THC Urine VISTA NEGATIVE (< 50 ng/mL); Vista UDS pH Range 6
[2023-10-15 22:44] LABS: Lactic Acid 2.1 mmol/L (0.4-1.9)
[2023-10-15 23:00] VITALS: BP 158/80; PULSE 66; RESP 21; TEMP 37.1; O2SAT 94
--- NOTE | 2023-10-15 23:13 | RAD_ITS ---
INDICATION: dyspnea EXAMINATION/TECHNIQUE: X-RAY - XR Chest 1 View COMPARISON: September 24, 2023 FINDINGS: LINES/DEVICES: Stable sternotomy wires. LUNGS: No consolidation, edema or effusion. No pneumothorax. MEDIASTINUM AND CARDIOVASCULAR STRUCTURES: Cardiac silhouette not enlarged. Central airways and mediastinal contour are unremarkable. BONES AND SOFT TISSUES: Degenerative vertebral changes. RAD/Chest 1 View (Portable) IMPRESSION: No radiographic evidence of acute cardiopulmonary disease. Electronically Signed: Iam Witt DO at 23:53 EDT ,
[2023-10-16] VITALS (11 sets, daily range): BP systolic 122–170; BP diastolic 67–95; PULSE 60–103; RESP 16–26; TEMP 36.4–37.4; O2SAT 93–100; BMI 25.8
[2023-10-16 01:19] LABS: Allen Test Positive; Base Excess -5 mmol/L (-2 to +2); Bicarbonate 16.7 mmol/L (22-26); Blood Gas Specimen Type ART; Mode Not entered; O2 Delivery Device Room Air; PO2 81 mmHG (75-100); SITE L Radial; SO2 98 % (95-99); Total Carbon Dioxide 17 mmol/L; pCO2 17.3 mmHg (35-45)
--- NOTE | 2023-10-16 01:33 | PCM.HP.STD ---
[facility] - General General Date of Admission: 10/16/23 Date of Service: 10/16/23 Chief Complaint: AMS and Severe Pain after Malfunction of Spinal Nerve Stimulator. HPI Narrative LAURENT DE LA FUENTE, is a 88 F with a past medical history of essential hypertension, hyperlipidemia, hypothyroidism, overweight; with BMI of 27.9 this admission, DM-2; of unknown control, diabetic neuropathy, chronic dementia, depression, remote history of tobacco abuse and OA; with history of chronic back pain s/p spinal nerve stimulator who was just moved here from [place] by her daughter who lives locally who presents to [facility] ER complaining of altered mental status and severe pain after an apparent malfunction of her spinal nerve stimulator. Ms. De La Fuente is not a reliable historian at this time so information was gathered from chart, medical staff, computer and her daughter at the bedside in the ER. According to her daughter her symptoms began approximately three weeks prior to admission when her spinal stimulator stopped working she immediately began to have paroxysms of severe and apparently unbearable pain that would last for several minutes before slowly resolving. She also reports associated severe panic attacks that coincide with these episodes that have left patient exhausted and confused after several days of uncontrolled symptoms. Since they just moved her here the earliest they could get an appointment with pain management is November 04, 2023. They have been evaluated by her PCP who initially prescribed Tramadol followed by prn Oxycodone which was followed by a Fentanyl patch which made her hallucinate so it was changed to Lyrica with recent increase to 100 mg PO BID with plan to increase it to TID if her symptoms were not controlled. Her family goes on to state she is significantly different than normal and that she has fallen approximately four times in the past week but she is still able to speak clearly and move all four extremities but now she is getting gradually more confused which is why they brought her in for further evaluation and treatment. There is no reports of fever, chills, nausea, vomiting, diarrhea, constipation, headache, slurred speech, focal neurologic deficits or obvious seizure activity though once when she had an acute pain attack she was sitting in a walker and then became very stiff followed by confusion she and was hyperventilating but there was no report of tonic-clonic seizure activity, tongue laceration or loss of bowel/bladder continence. In the ER she was diagnosed with intermittent Paroxysms of Severe and Uncontrollable Pain attributable to Malfunctioning Spinal Nerve Stimulator which has resulted in subsequent Panic Attacks with Hyperventilation suspected to be causing abnormal ABG with simultaneous evidence of and she was then admitted to the PCU under observation status for ongoing care for a stay that is expected to be less than 2 midnights. [facility] Medical History unable to obtain Home Medications ?Medication ?Instructions ?Recorded ?Last Taken ?Type aspirin 81 mg chewable tablet 1 tab PO DAILY 10/15/23 10/15/23 History (Aspirin Childrens) atorvastatin 80 mg tablet 80 mg PO DAILY 10/15/23 10/15/23 History carvedilol 3.125 mg tablet 3.125 mg PO DAILY 10/15/23 10/15/23 History clopidogrel 75 mg tablet 75 mg PO DAILY 10/15/23 10/15/23 History escitalopram oxalate 10 mg tablet 10 mg PO DAILY 10/15/23 10/15/23 History furosemide 20 mg tablet 20 mg PO DAILY 10/15/23 10/15/23 History levothyroxine 50 mcg tablet 50 mcg PO DAILY 10/15/23 10/15/23 History (Levo-T) lisinopril 20 mg tablet 20 mg PO QHS 10/15/23 10/14/23 History metoprolol tartrate 25 mg tablet 25 mg PO BID 10/15/23 10/15/23 History pregabalin 100 mg capsule 100 mg PO BID 10/15/23 10/15/23 History sitagliptin phosphate 100 mg 100 mg PO DAILY 10/15/23 10/15/23 History tablet (Januvia) trazodone 50 mg tablet 50 mg PO QHS 10/15/23 10/14/23 History Allergy/AdvReac Type Severity Reaction Status Date / Time No Known Allergies Allergy Verified 10/15/23 20:55 Family History unable to obtain Surgical History unable to obtain Social History Smoking Status: Former smoker ROS ROS Narrative Full ROS was not possible due to patient confusion. Vital Signs Vital Signs Vital Signs: 10/15/23 20:43 10/15/23 22:06 10/15/23 23:00 Temperature 97.5 F L 98.8 F 98.8 F Temperature Source Temporal Oral Oral Pulse Rate 67 62 66 Respiratory Rate 11 L 25 H 21 H Blood Pressure 149/74 H 142/72 H 158/80 H Blood Pressure Mean 99 95 106 Pulse Ox 100 95 94 Oxygen Delivery Method Room Air Room Air Room Air 10/16/23 00:00 Temperature 98.1 F Temperature Source Temporal Pulse Rate 68 Respiratory Rate 17 Blood Pressure 122/78 H Blood Pressure Mean 92 Pulse Ox 98 Oxygen Delivery Method Room Air Weight Weight: 173 lb 1.006 oz Body Mass Index (BMI) 27.9 Physical Exam Const alert and average body habitus Constitutional Narrative: Moderate distress noted with patient appearing anxious and attempting to hold still to avoid triggering pain. Orientation / Consciousness: confused, disoriented and lethargic HEENT normocephalic, head/scalp atraumatic, hearing grossly normal bilaterally and moist oral mucous membranes Eyes PERRL and EOMs intact bilaterally Neck no lymphadenopathy and supple Resp normal respiratory effort, no retractions, no use of accessory muscles and clear to auscultation bilaterally Cardio regular rate and regular rhythm GI normal to inspection, nondistended, normoactive bowel sounds, soft to palpation, non-tender and non-distended Extremity normal to inspection, full ROM and no clubbing, cyanosis or edema Skin Skin Narrative: Patient has no evidence of abscess, jaundice or rash. Neuro CN's II-XII intact bilaterally, moves all extremities and no focal motor deficits Sensorium / Orientation: awake, alert and oriented to person Speech: speech normal Psych Mood & Affect: anxious Results Medical Records Data Attestation: I reviewed the patient's medical records Lab / Micro Data Attestation: I reviewed the patient's lab results. 10/15/23 21:50 10/15/23 21:44 Labs: Laboratory Results - last 24 hr 10/15/23 21:44: Sodium 139, Potassium 3.5, Chloride 108 H, Carbon Dioxide 19.0 L, Anion Gap 12, BUN 21 H, Creatinine 1.15 H, Estim Creat Clear Calc 37.13, Est GFR (MDRD) Af Amer 58 L, Est GFR (MDRD) Non-Af 48 L, BUN/Creatinine Ratio 18.3, Glucose 94, Lactic Acid 2.1 H*, Calcium 9.3, Total Bilirubin 2.10 H, Direct Bilirubin 0.52 H, AST 24, ALT 23, Alkaline Phosphatase 82, Troponin I High Sens 30, B-Natriuretic Peptide 405.1 H, Total Protein 7.6, Albumin 3.7, Globulin 3.9, Lipase 59, Ethyl Alcohol < 3.0 10/15/23 21:50: WBC 11.2 H, RBC 4.06 L, Hgb 12.3, Hct 36.6 L, MCV 90.1, MCH 30.3, MCHC 33.6, RDW Std Deviation 42.7, RDW Coeff of Ross 12.9, Plt Count 285, MPV 10.8, Immature Gran % (Auto) 0.500, Neut % (Auto) 75.2 H, Lymph % (Auto) 14.3 L, [place] % (Auto) 7.4, Eos % (Auto) 2.2, Baso % (Auto) 0.4, Absolute Neuts (auto) 8.4 H, Absolute Lymphs (auto) 1.59, Nucleated RBC % 0, PT 14.2, INR 1.1, APTT 32.3 10/15/23 21:54: Urine Color Yellow, Urine Clarity Clear, Urine pH 8.0, Ur Specific [place] 1.010, Urine Protein Negative, Urine Glucose (UA) Normal, Urine Ketones 5 H, Urine Occult Blood Negative, Urine Nitrite Negative, Urine Bilirubin Negative, Urine Urobilinogen 1 H, Ur Leukocyte Esterase Negative, Urine RBC 0 SEEN, Urine WBC 0 SEEN, Ur Squamous Epith Cells 0 SEEN, Urine Bacteria 0 SEEN, Urine Mucus 0 SEEN, Urine Opiates Screen NEGATIVE, Urine Methadone Screen NEGATIVE, Ur Barbiturates Screen NEGATIVE, Ur Phencyclidine Scrn NEGATIVE, Ur Amphetamines Screen NEGATIVE, MDMA (Ecstasy) Screen NEGATIVE, U Benzodiazepines Scrn NEGATIVE, Urine Cocaine Screen NEGATIVE, U Cannabinoids Screen NEGATIVE, Ur Drug Screen Comment Micro: Microbiology 10/15/23 21:40 Mucosa - Nasopharyngeal SARS-CoV-2, Influenza & RSV (PCR) - Final ABG Data ABG results: ABG 10/15/23 10/16/23 22:11 01:13 Specimen Type ART ART Sample Site L Radial L Radial pH 7.72 H* 7.60 H* Bicarbonate Actual 12.3 L 16.7 L Total CO2 13 17 Base Excess -7 L -5 L O2 Saturation 99 98 O2 % 21.0 ABG pCO2 9.6 L* 17.3 L* ABG pO2 99 81 Jameel Test Positive Positive O2 Delivery Device Room Air Room Air Vent Mode Not entered Not entered Crit Call To/Read Back Yes Yes Blood Gas Notified Whom edd Guevara Blood Gas Notified Time 22:13:22 01:15:15 Imaging Radiology Impression Brain CT 10/15/23 21:19 IMPRESSION: Age-related changes of the brain. Electronically Signed: Iam Witt DO at 23:23 EDT , Chest X-Ray 10/15/23 23:13 IMPRESSION: No radiographic evidence of acute cardiopulmonary disease. Electronically Signed: Iam Witt DO at 23:53 EDT , [facility] Imaging Services [address] [place] [address] [id number] Spine Lumbar without Contrast MR#: [id number] Acct: [id number] Name: LAURENT DE LA FUENTE Rep #: [id number] : 1935 F [id number] From: Merlin Amaro MD PCP: Dr. Octavia Goins DO Status: ADM IN Study: Spine Lumbar without Contrast Date of Exam: 10/16/23 Exam# [id number] Ordering Dr: Chuy Guevara DO INDICATION: Severe Back Pain with Malfunction of Spinal Stimul EXAMINATION: CT LUMBAR SPINE - CT Spine Lumbar W/O Contrast Injection TECHNIQUE: Helically acquired images were obtained of the lumbar spine. 2D reformats were reviewed. A radiation dose optimization technique was used for this scan. The protocol utilizes one or more of the following dose reduction techniques: automated exposure control, adjustment of mA and/or kV according to patient size,and/or use of iterative reconstruction technique. IV Contrast dosage and agent: None. RADIATION DOSAGE (If Supplied By Facility): CTDIvol = ( 22.83 ) mGy, DLP = ( 623.47 ) mGycm COMPARISON: No relevant prior comparison study available FINDINGS: VERTEBRAE: No fracture or traumatic subluxation. No discrete lytic or blastic abnormality observed. Normal alignment. DISCS and SPINAL CANAL: Severe multilevel spondylosis. Moderate to severe spinal canal stenosis is more prominent at L2-3, L3-4, L4-5. VISUALIZED ABDOMEN: Visualized abdominal aorta is not dilated. There is no retroperitoneal adenopathy. CT/Spine Lumbar without Contrast IMPRESSION: Severe multilevel spondylosis. Moderate to severe spinal canal stenosis is more prominent at L2-3, L3-4, L4-5. Electronically Signed: Merlin Amaro MD at 4:07 EDT , CC: Dr. Chuy Guevara DO; Dr. Octavia Goins DO ~ Buyer Planner: Signed Assessment & Plan Assessment/Plan (1) Spinal cord stimulator dysfunction: QUALIFIERS: Encounter type: initial encounter Qualified Code(s): T85.192A - Other mechanical complication of implanted electronic neurostimulator of spinal cord electrode (lead), initial encounter (2) Paroxysmal nerve pain: (3) Altered mental status: QUALIFIERS: Altered mental status type: delirium Qualified Code(s): R41.0 - Disorientation, unspecified (4) Metabolic alkalosis with respiratory acidosis: (5) Dementia: QUALIFIERS: Dementia behavioral or psychological symptom: unspecified whether behavioral, psychotic, or mood disturbance or anxiety Dementia severity: unspecified severity Dementia type: unspecified type Qualified Code(s): F03.90 - Unspecified dementia, unspecified severity, without behavioral disturbance, psychotic disturbance, mood disturbance, and anxiety PLAN: Plan 1. Paroxysms of Severe and Uncontrollable Pain attributable to Malfunctioning Spinal Nerve Stimulator implanted to control Chronic Back Pain attributes to OA while she lived in [place] - Admit to PCU under observation status. Check Ct scan of Lumbar spine to evaluate for acute pathologic changes and/or migration of her leads that would potentially explain her symptoms and rapid, significant clinical decline. Give Decadron 4 mg IV BID to treat inflammatory component of pain. Place Lidoderm patch over low back in an effort to further temporize back pain with additional non-opiate based analgesia. We will increase her Lyrica to 100 mg PO TID as per her PCP's plan with the daughter notified and in agreement. Otherwise we will give Tylenol prn for [id number] (level 1-5/10) pain or fever. Give Dilaudid IV prn for severe (level 6-10/10) pain. Finally, patient will need to follow up with pain management in an effort to either fix the device malfunction, replace the device or remove it altogether. 2. Acute Delirium with Panic Attacks and Hyperventilation in the setting of Chronic Dementia complicating #1 - Continue supportive care outlined above plus check TSH, B12 and Folate to evaluate for potentially reversible causes of confusion. Give IM Vistaril prn severe panic attacks with hyperventilation. Finally, because of this patient's limited ability to communicate and the severity of her symptoms with significant behavioral changes we will check EEG in the outside chance she is having possible seizures with a low-index of suspicion but we will check because it is still in the differential diagnosis of what may be causing this problem or complicating it. Give IV Ativan prn for obvious tonic-clonic seizure activity. Finally, MRI can likely not be safely done unless Spinal Stimulator is first removed. 3. Abnormal ABG with simultaneous evidence of Metabolic Alkalosis and Respiratory Acidosis with mild Lactic Acidosis of 2.1 mmol/L present on admission attributable to #1 & #2 - Resume supportive care as noted and recheck VBG and reassess mental status for potential improvement in the AM. Patient was also noted to have an elevated BNP of 405.1 pg/mL present on admission with no signs of congestion on chest x-ray or volume overload with significant swelling in lower extremities so she will simply be continued on her oral Lasix, Coreg and lisinopril as previous. 4. Essential hypertension - Continue home regimen as previous. 5. Hyperlipidemia - Resume statin and check Lipid Profile. 6. Hypothyroidism - Continue Synthroid and check TSH in light of #1 & #2. 7. Overweight; with BMI of 27.9 this admission - Weight loss will be recommended. 8. DM-2; of unknown control with diabetic neuropathy - ADA diet. FSBS q. AC/HS plus moderate-intensity SSI while on steroids to treat #1. Check HgbA1c to objectively assess quality of diabetic control. 9. Depression - Resume home regimen as previous. 10. Remote history of tobacco abuse and - Noted. 11. DVT prophylaxis - Lovenox 40 mg sq daily plus SCD's. Total time: Approximately 85 minutes. Charges/Coding Visit Charges OBSV E&M: [id number] Observ/hosp same date L2
[2023-10-16 01:57] LABS: Reflex Lactate? Y
--- NOTE | 2023-10-16 02:09 | CT_ITS ---
INDICATION: Severe Back Pain with Malfunction of Spinal Stimul EXAMINATION: CT LUMBAR SPINE - CT Spine Lumbar W/O Contrast Injection TECHNIQUE: Helically acquired images were obtained of the lumbar spine. 2D reformats were reviewed. A radiation dose optimization technique was used for this scan. The protocol utilizes one or more of the following dose reduction techniques: automated exposure control, adjustment of mA and/or kV according to patient size,and/or use of iterative reconstruction technique. IV Contrast dosage and agent: None. RADIATION DOSAGE (If Supplied By Facility): CTDIvol = ( 22.83 ) mGy, DLP = ( 623.47 ) mGycm COMPARISON: No relevant prior comparison study available FINDINGS: VERTEBRAE: No fracture or traumatic subluxation. No discrete lytic or blastic abnormality observed. Normal alignment. DISCS and SPINAL CANAL: Severe multilevel spondylosis. Moderate to severe spinal canal stenosis is more prominent at L2-3, L3-4, L4-5. VISUALIZED ABDOMEN: Visualized abdominal aorta is not dilated. There is no retroperitoneal adenopathy. CT/Spine Lumbar without Contrast IMPRESSION: Severe multilevel spondylosis. Moderate to severe spinal canal stenosis is more prominent at L2-3, L3-4, L4-5. Electronically Signed: Merlin Amaro MD at 4:07 EDT ,
[2023-10-16 02:13] LABS: Lactic Acid 1.7 mmol/L (0.4-1.9)
[2023-10-16] MEDS: dexAMETHasone 4 MG/ML Vial IV ×3 (03:23→21:36)
[2023-10-16] MEDS: Lidocaine 5% Patch 1 PATCH TOPICAL (03:23)
[2023-10-16] MEDS: 0.9% Normal Saline (1000mL) 1,000 ML 70 ML IV ×2 (03:23→19:31)
[2023-10-16] MEDS: Acetaminophen 325 MG Tablet 650 MG PO (05:11)
[2023-10-16] MEDS: Pregabalin 50 MG Capsule 100 MG PO ×2 (05:11→13:53)
[2023-10-16] MEDS: Levothyroxine 50 MCG Tablet PO (05:12)
[2023-10-16 06:35] LABS: Bedside Glucose 118 mg/dL (74-106)
[2023-10-16 06:56] LABS: Base Excess -7 mmol/L (-2 to +2); Bicarbonate 15.6 mmol/L (22-26); Blood Gas Specimen Type ART; Mode Not entered; O2 Delivery Device Not entered; PO2 95 mmHG (75-100); SITE R Brach; SO2 99 % (95-99); Total Carbon Dioxide 16 mmol/L; pCO2 17.1 mmHg (35-45); pH 7.57 (7.35-7.45)
[2023-10-16 07:29] LABS: Absolute Lymphocyte Count 0.87 X10^3/uL (0.83-4.51); Absolute Neutrophil Count 8.2 X10^3/uL (2.0-7.7); Basophil# 0.02 X10^3/uL; Basophil% 0.2 % (0-1); Eosinophil# 0.05 X10^3/uL; Eosinophils% 0.5 % (0-5); Hematocrit 29.8 % (37-47); Hemoglobin 10.2 g/dL (12.0-15.0); Lymphocyte # 0.87 X10^3/ul (0.83-4.51); Lymphocyte % 9.2 % (19-41); Mean Corp Hgb Conc 34.2 g/dL (32-36); Mean Corpuscular Hgb 30.3 pg (27.0-32.0); Mean Corpuscular Volume 88.4 fL (81-99); Mean Platelet Vol. 11.2 fl (6.2-12.0); Monocyte% 3.2 % (0-10); NRBC Flagged by Analyzer 0 % (0-5); Neutrophil # 8.18 X10^3/uL (2.7-7.7); Neutrophil % 86.2 % (47-70); Platelet Count 264 K/mm3 (150-450); RBC Distribution Width CV 13.1 % (11.6-14.6); RBC Distribution Width SD 42.4 fl (35.1-43.9); Red Blood Count 3.37 M/mm3 (4.2-5.4); White Blood Count 9.5 K/mm3 (4.4-11.0)
[2023-10-16 08:00] LABS: Hemoglobin A1c 5.4 % (3.8-5.6)
[2023-10-16 08:01] LABS: ALB/GLOB Ratio 0.9 RATIO (0.9-2.4); AST(SGOT) 22 U/L (15-37); Alanine Aminotransfer ALT/SGPT 19 U/L (13-56); Albumin, Serum 3.2 g/dL (3.2-5.0); Alkaline Phosphatase 71 U/L (45-117); Anion Gap 10 (5-15); BUN 21 mg/dL (7-18); Calcium,Total 8.4 mg/dL (8.5-10.1); Chloride 112 mmol/L (98-107); Cholesterol 107 mg/dL (200); EST Glomerular Filtration Rate 56 mL/min (>60); Est Glom Filt Rate - Afr Amer 68 mL/min (>60); Estimated Creatinine Clearance 39.78 ml/min; Globulin 3.4 g/dL (2.2-4.2); Glucose 116 mg/dL (74-106); High Density Lipoprotein 35 mg/dL; Magnesium 1.4 mg/dL (1.6-2.6); Potassium 3.3 mmol/L (3.5-5.1); Protein, Total 6.6 g/dL (6.4-8.2); Sodium Level 141 mmol/L (136-145); Thyroid Stim Hormone (TSH) 2.03 uIU/mL (0.358-3.74); Triglycerides 98 mg/dL; Very Low Density Lipoprotein 20 mg/dL (5-40)
[2023-10-16 08:09] LABS: CPK Total, Creatine Kinase 168 U/L (26-192)
[2023-10-16 08:10] LABS: Phosphorus 2.9 mg/dL (2.5-4.9)
--- NOTE | 2023-10-16 08:10 | PCM.PN.HOSP ---
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/23) Unspecified dementia, unspecified severity, without behavioral disturbance, psychotic disturbance, mood disturbance, and anxiety (10/16/23) Neuralgia and neuritis, unspecified (10/16/23) Disorientation, unspecified (10/16/23) Altered mental status, unspecified (10/16/23) Other mechanical complication of implanted electronic neurostimulator of spinal cord electrode (lead), initial encounter (10/16/23) Objective Data Objective Data Vital Signs: Vital Signs Temp Pulse Resp BP Pulse Ox O2 Del Method 97.5 F L 64 16 151/69 H 99 Room Air 10/16/23 05:17 10/16/23 05:17 10/16/23 05:17 10/16/23 05:17 10/16/23 05:17 10/16/23 05:17 Oxygen Delivery Method Room Air Weight: 155 lb 6.814 oz Body Mass Index (BMI) 25.8 Intake & Output: Intake and Output for Last 24 Hours 10/14/23 10/15/23 10/16/23 23:59 23:59 23:59 Intake Total 1000 / 1000 Balance 1000 / 1000 Lab / Micro Data 10/16/23 06:40 10/16/23 06:40 Labs: Laboratory Results - last 24 hr 10/15/23 21:44: Sodium 139, Potassium 3.5, Chloride 108 H, Carbon Dioxide 19.0 L, Anion Gap 12, BUN 21 H, Creatinine 1.15 H, Estim Creat Clear Calc 37.13, Est GFR (MDRD) Af Amer 58 L, Est GFR (MDRD) Non-Af 48 L, BUN/Creatinine Ratio 18.3, Glucose 94, Lactic Acid 2.1 H*, Calcium 9.3, Total Bilirubin 2.10 H, Direct Bilirubin 0.52 H, AST 24, ALT 23, Alkaline Phosphatase 82, Troponin I High Sens 30, B-Natriuretic Peptide 405.1 H, Total Protein 7.6, Albumin 3.7, Globulin 3.9, Lipase 59, Ethyl Alcohol < 3.0 10/15/23 21:50: WBC 11.2 H, RBC 4.06 L, Hgb 12.3, Hct 36.6 L, MCV 90.1, MCH 30.3, MCHC 33.6, RDW Std Deviation 42.7, RDW Coeff of Ross 12.9, Plt Count 285, MPV 10.8, Immature Gran % (Auto) 0.500, Neut % (Auto) 75.2 H, Lymph % (Auto) 14.3 L, [place] % (Auto) 7.4, Eos % (Auto) 2.2, Baso % (Auto) 0.4, Absolute Neuts (auto) 8.4 H, Absolute Lymphs (auto) 1.59, Nucleated RBC % 0, PT 14.2, INR 1.1, APTT 32.3 10/15/23 21:54: Urine Color Yellow, Urine Clarity Clear, Urine pH 8.0, Ur Specific Herald 1.010, Urine Protein Negative, Urine Glucose (UA) Normal, Urine Ketones 5 H, Urine Occult Blood Negative, Urine Nitrite Negative, Urine Bilirubin Negative, Urine Urobilinogen 1 H, Ur Leukocyte Esterase Negative, Urine RBC 0 SEEN, Urine WBC 0 SEEN, Ur Squamous Epith Cells 0 SEEN, Urine Bacteria 0 SEEN, Urine Mucus 0 SEEN, Urine Opiates Screen NEGATIVE, Urine Methadone Screen NEGATIVE, Ur Barbiturates Screen NEGATIVE, Ur Phencyclidine Scrn NEGATIVE, Ur Amphetamines Screen NEGATIVE, MDMA (Ecstasy) Screen NEGATIVE, U Benzodiazepines Scrn NEGATIVE, Urine Cocaine Screen NEGATIVE, U Cannabinoids Screen NEGATIVE, Ur Drug Screen Comment 10/16/23 00:16: Lactic Acid 1.7 10/16/23 06:04: POC Glucose 118 H 10/16/23 06:40: WBC 9.5, RBC 3.37 L, Hgb 10.2 L, Hct 29.8 L, MCV 88.4, MCH 30.3, MCHC 34.2, RDW Std Deviation 42.4, RDW Coeff of Ross 13.1, Plt Count 264, MPV 11.2, Immature Gran % (Auto) 0.700, Neut % (Auto) 86.2 H, Lymph % (Auto) 9.2 L, [place] % (Auto) 3.2, Eos % (Auto) 0.5, Baso % (Auto) 0.2, Absolute Neuts (auto) 8.2 H, Absolute Lymphs (auto) 0.87, Nucleated RBC % 0, Sodium 141, Potassium 3.3 L, Chloride 112 H, Carbon Dioxide 19.0 L, Anion Gap 10, BUN 21 H, Creatinine 1.00, Estim Creat Clear Calc 39.78, Est GFR (MDRD) Af Amer 68, Est GFR (MDRD) Non-Af 56 L, BUN/Creatinine Ratio 21.0 H, Glucose 116 H, Hemoglobin A1c 5.4, Calcium 8.4 L, Phosphorus 2.9, Magnesium 1.4 L, Total Bilirubin 1.60 H, AST 22, ALT 19, Alkaline Phosphatase 71, Total Creatine Kinase 168, Total Protein 6.6, Albumin 3.2, Globulin 3.4, Albumin/Globulin Ratio 0.9, Triglycerides 98, Cholesterol 107, LDL Cholesterol 52, VLDL Cholesterol 20, HDL Cholesterol 35 L, Folate 14.40, TSH 2.03, Prolactin 6.0 Micro: Microbiology 10/15/23 21:40 Mucosa - Nasopharyngeal SARS-CoV-2, Influenza & RSV (PCR) - Final ABG Data ABG results: ABG 10/15/23 10/16/23 10/16/23 22:11 01:13 06:51 Specimen Type ART ART ART Sample Site L Radial L Radial R Brach pH 7.72 H* 7.60 H* 7.57 H Bicarbonate Actual 12.3 L 16.7 L 15.6 L Total CO2 13 17 16 Base Excess -7 L -5 L -7 L O2 Saturation 99 98 99 O2 % 21.0 21.0 ABG pCO2 9.6 L* 17.3 L* 17.1 L* ABG pO2 99 81 95 Jameel Test Positive Positive O2 Delivery Device Room Air Room Air Not entered Vent Mode Not entered Not entered Not entered Crit Call To/Read Back Yes Yes Yes Blood Gas Notified Whom edd Chacon Blood Gas Notified Time 22:13:22 01:15:15 06:54:41 Radiography Diagnostic Testing: Radiology Impression Brain CT 10/15/23 21:19 IMPRESSION: Age-related changes of the brain. Electronically Signed: Iam Witt DO at 23:23 EDT Reading Location ID and State: [facility] / [place] Tel [phone], Service support , Chest X-Ray 10/15/23 23:13 IMPRESSION: No radiographic evidence of acute cardiopulmonary disease. Electronically Signed: Ima Witt DO at 23:53 EDT , Lumbar Spine CT 10/16/23 02:09 IMPRESSION: Severe multilevel spondylosis. Moderate to severe spinal canal stenosis is more prominent at L2-3, L3-4, L4-5. Electronically Signed: Merlin Amaro MD at 4:07 EDT , Physical Exam Narrative Seen and examined. Patient is confused and disoriented to time and place. She looks quite and sober. She has advanced dementia and her daughter is main caregiver. Complain of pain in her right and left buttock region and hip region. Chronic pain. Had spinal stimulator for pain but is not working Physical exam General: Awake, disoriented to time place and person. Cooperative HEENT: Atraumatic, PERRLA, EOMI, Normocephalic Oral: No Gingival or Mucosal Lesions/ Ulcerations Neck: Supple, No JVD, Negative Carotid Bruits Chest wall/Lungs: Air entry diminished in bilateral lung bases. No crepitation/rhonchi Cardiovascular: Regular rate, Regular Rhythm, Normal S1, Normal S2, No M/G/R Abdomen: Bowel Sounds Present, Soft, Non Tender, Non-Distended : No dysuria. No renal angle tenderness. No suprapubic tenderness. Extremities: No edema, Capillary Refill Less than 3 Seconds Skin: No rashes, No breakdown Musculoskeletal: No Tenderness to Palpation of the peripheral extremities. ROM restricted. Degenerative arthritis Spine: Lidoderm patch. Tenderness present on right and left paraspinal and gluteal muscles. No tenderness at hip joints. Neurological: Cranial nerves II-XII grossly intact, DTR 2+/4. No acute focal neurological deficit. Psych/Mental Status: Flat affect dementia. Assessment & Plan Assessment/Plan (1) Spinal cord stimulator dysfunction: QUALIFIERS: Encounter type: initial encounter Qualified Code(s): T85.192A - Other mechanical complication of implanted electronic neurostimulator of spinal cord electrode (lead), initial encounter (2) Paroxysmal nerve pain: (3) Altered mental status: QUALIFIERS: Altered mental status type: delirium Qualified Code(s): R41.0 - Disorientation, unspecified (4) Metabolic alkalosis with respiratory acidosis: (5) Dementia: QUALIFIERS: Dementia behavioral or psychological symptom: unspecified whether behavioral, psychotic, or mood disturbance or anxiety Dementia severity: unspecified severity Dementia type: unspecified type Qualified Code(s): F03.90 - Unspecified dementia, unspecified severity, without behavioral disturbance, psychotic disturbance, mood disturbance, and anxiety PLAN: Plan 88-year-old female being brought by EMS for altered mental status. As per daughter she is briefly unresponsive. EMS stated that she she is drowsy and lethargic. She is not either alert or unresponsive. Patient has mid back probably spinal stimulator in her back that is not working. She has been on tramadol, oxycodone and was not working therefore prescribed fentanyl patch which resulted in hallucinations. Then it was changed to Lyrica 200 mg twice daily on past Wednesday. No fever. She was repeating same words and sentences, echolalia. 1. Paroxysms of Severe and Uncontrollable Pain attributable to Malfunctioning Spinal Nerve Stimulator implanted to control Chronic Back Pain attributes to OA while she lived in [place]: Patient is admitted in PCU. CT lumbar spine shows Severe multilevel spondylosis. Moderate to severe spinal canal stenosis more prominent at L2-3, L3-4 and L4-5. Does not show any acute pathology fracture. On Decadron for pain control. Lidoderm patch. Will try to manage nonopioid analgesic medication. Lyrica 100 mg 3 times daily. PT and OT. Patient can follow-up orthospine or whoever manages the spine stimulator as she states battery might have run down. 2. Acute Delirium with Panic Attacks and Hyperventilation in the setting of Chronic Dementia -patient is still confused and disoriented to place. She knows day and night but cannot tell month or year or her age therefore retrograde and anterograde amnesia relates to dementia. PT and OT. TSH normal. Folate normal. B12 pending. 3. Respiratory alkalosis likely from panic attack: ABG 7.5 10/26/1994 on room air consistent with respiratory alkalosis probably due to panic attack. Currently panic attack is resolved and she is more quite 4. Essential hypertension - Continue home regimen as previous. 5. Hyperlipidemia - Resume statin and fasting lipid profile shows HDL 35 otherwise in normal limit. 6. Hypothyroidism - Continue Synthroid. TSH normal limit 7. Overweight; with BMI of 27.9 this admission - Weight loss recommended. 8. DM-2; of unknown control with diabetic neuropathy - ADA diet. FSBS q. AC/HS plus moderate-intensity SSI while on steroids to treat #1. Check HgbA1c to objectively assess quality of diabetic control. 9. Depression - Resume home regimen as previous. 10. Remote history of tobacco abuse and - Noted. 11. DVT prophylaxis - Lovenox 40 mg sq daily plus SCD's. Sodium 141, Potassium 3.3 L, Chloride 112 H, Carbon Dioxide 19.0 L, Anion Gap 10, BUN 21 H, Creatinine 1.00, Estim Creat Clear Calc 39.78, Est GFR (MDRD) Af Amer 68, Est GFR (MDRD) Non-Af 56 L, BUN/Creatinine Ratio 21.0 H, Glucose 116 H, Hemoglobin A1c 5.4, Calcium 8.4 L, Phosphorus 2.9, Magnesium 1.4 L, Total Bilirubin 1.60 H, AST 22, ALT 19, Alkaline Phosphatase 71, Total Creatine Kinase 168, Total Protein 6.6, Albumin 3.2, Globulin 3.4, Albumin/Globulin Ratio 0.9, Triglycerides 98, Cholesterol 107, LDL Cholesterol 52, VLDL Cholesterol 20, HDL Cholesterol 35 L, Vitamin B12 Pending, Folate 14.40, TSH 2.03, Prolactin 6.0 10/16/23 06:51: Specimen Type ART, Sample Site R Brach, pH 7.57 H, Bicarbonate Actual 15.6 L, Total CO2 16, Base Excess -7 L, O2 Saturation 99, O2 % 21.0, ABG pCO2 17.1 L*, ABG pO2 95, O2 Delivery Device Not entered, Vent Mode Not entered, Crit Call To/Read Back Yes, Blood Gas Notified Whom Dr. Chacon, Blood Gas Notified Time 06:54:41 10/16/23 11:50: POC Glucose 211 H Clinical Impression(s) from Imaging Studies Brain CT 10/15/23 21:19 IMPRESSION: Age-related changes of the brain. Electronically Signed: Iam Witt DO at 23:23 EDT Reading Location ID and State: [facility] / [place] Tel [phone], Service support , Chest X-Ray 10/15/23 23:13 IMPRESSION: No radiographic evidence of acute cardiopulmonary disease. Electronically Signed: Iam Witt DO at 23:53 EDT Reading Location ID and State: [facility] / [place] Tel [phone], Service support , Lumbar Spine CT 10/16/23 02:09 IMPRESSION: Severe multilevel spondylosis. Moderate to severe spinal canal stenosis is more prominent at L2-3, L3-4, L4-5. Charges/Coding Visit Charges Inpatient E&M: 97356 Subs Hosp L2
[2023-10-16] MEDS: Potassium Chloride Oral Tablet 20 MEQ 40 MEQ PO ×2 (10:12→13:52)
[2023-10-16] MEDS: Magnesium Sulfate 2 GM in Dextrose 5%-Water (100mL Bag) 100 ML IV (10:13)
[2023-10-16] MEDS: Aspirin 81 MG TAB.CHEW PO (10:49)
[2023-10-16] MEDS: Carvedilol 3.125 MG TABLET PO (10:49)
[2023-10-16] MEDS: Furosemide 20 MG Tablet PO (10:49)
[2023-10-16] MEDS: Escitalopram Oxalate 10 MG Tablet PO (10:50)
[2023-10-16] MEDS: Clopidogrel Bisulfate 75 MG Tablet PO (10:50)
[2023-10-16] MEDS: 0.9% Saline Lock 10 ML Syringe IV ×2 (10:50→18:14)
[2023-10-16] MEDS: Enoxaparin 40 MG/0.4 ML Syringe SC (10:50)
--- NOTE | 2023-10-16 10:50 | CASEMGMT ---
QUEENIE CASTILLO Face to Face with patient for initial transition planning/care coordination assessment. QUEENIE CASTILLO introduced self and role at [facility]. Patient sitting in chair, alert and confused as patient has history of dementia. QUEENIE CASTILLO called daughterSana, to complete assessment. Daughter willing to participate in assessment and is able to answer all questions appropriately. Care providers, pharmacy, and demographics verified. PCP: Briseida Specialists: none Preferred Pharmacy: [facility] Insurance: [facility], Prescription Benefit: yes Living Will/HPOA: yes, daughter Sana Araya LNOK: daughter Living Arrangements: Patient lives with daughter in a 2 story home with bed and bath on first floor. Patient is independent at home for selfcare. Transportation: daughter DME/HHC: Patient has shower chair, raised toilet, grab bars, walker, rollator, wheelchair at home. No previous HHC or SNF Daughter wishes for patient to discharge home, discuss therapy at discharge and prefer outpatient therapy at [facility]. QUEENIE CASTILLO updated daughter that order will be sent to [facility] and will have them call her to schedule appointment. Daughter states she has no further needs or concerns at this time. QUEENIE CASTILLO obtained script for outpatient therapy and sent to [facility]. Script and [facility] information placed in patient's folder. CM to follow for discharge planning needs that may arise. Disposition Plan: Patient to discharge home with family support and follow-up plans in place. Alexus BALBUENA, RN, CM
--- NOTE | 2023-10-16 11:13 | EEG_ITS ---
EEG Results Procedure Details EEG Procedure Details: Inpatient routine EEG report performed at [facility] Study start time: 01/08 am on 10/16/23 End Time: 950 am on 10/16/23 History: altered mental status ? Indication: rule out seizures Technical Description: This is a 18-channel digital EEG recording with time- locked video and single-channel electrocardiogram. Electrodes are placed according to the 10 to 20 International System. The patient was monitored continuously by EEG technicians and EEG recording was reviewed intermittently with annotations to the EEG record. Portions of this record are reviewed using bandpass filters of 1 to 70 Hz and sensitivity of 7mV/mm. EEG DESCRIPTION Background: This recording was obtained during awake and drowsy state. In the maximally alert state, a posterior dominant rhythm was a symmetric, reactive, well-modulated 7 Hz with a normal frequency-amplitude gradient. During drowsiness, there was attenuation of the waking background. Activation Procedures: Hyperventilation and photic stimulation were performed. No abnormal or epileptic activity was triggered by these procedures. Sporadic Epileptiform Discharges: none Focal slow activity: none Rhythmic or Periodic activity: none ? Seizures: none Patient Events: none EEG DIAGNOSIS Encephalopathy ? CLINICAL INTERPRETATION This awake and drowsy EEG is consistent with mild diffuse encephalopathy.?No epileptiform discharges or lateralizing signs were seen. Kieran Reeves MD Geological Manager of Neurology [facility]
--- NOTE | 2023-10-16 11:38 | CPS ---
Pt getting up to bathroom with [employer]PL[employer] SUPERVISOR, SMI held
[2023-10-16 12:09] LABS: Bedside Glucose 211 mg/dL (74-106)
[2023-10-16] MEDS: Insulin Lispro 100 UNIT/ML INSULN.PEN SC ×3 (12:31→21:36)
[2023-10-16 16:54] LABS: Bedside Glucose 201 mg/dL (74-106)
[2023-10-16] MEDS: Haloperidol Lactate 5 MG/ML Vial 2 MG IV (18:12)
[2023-10-16 18:29] LABS: Bedside Glucose 208 mg/dL (74-106)
--- NOTE | 2023-10-16 18:58 | NURSING ---
Staff came and asked this RN if patient was confused as she was crying and upset. This RN stated yes and went to room to talk to the patient to see what was wrong. Pt was anxious and upset. No prn medications ordered for anxiety or agitation at this time. This RN had tried to talk with the patient to see if that would help patient relax. Pt stated that she would break the window and attempted to throw the quality assurance monitor at the window. Patient was still sitting in chair with chair alarm set. RN went to notify MD and get prn medication ordered. RN asked MANAGEMENT PROFESSIONAL to please go stay with the patient, so MD could be notified. Patient's chair alarm was set and call light within reach. Patient found on floor between chair and bed sitting on her buttock with quality assurance monitor leads half off and telemetry box in her hand. MD notified and prn orders obtained via telephone and placed. Patient's vitals and glucose obtained, patient assisted back to bed. No injuries noted. Patient's daughter, Sana notified.
[2023-10-16 22:16] LABS: Bedside Glucose 152 mg/dL (74-106)
[2023-10-17] VITALS (7 sets, daily range): BP systolic 133–179; BP diastolic 64–92; PULSE 65–82; RESP 16–18; TEMP 36.3–36.8; O2SAT 90–100; BMI 26.2
[2023-10-17] MEDS: proMETHazine 25 MG/ML Syringe IM (04:52)
[2023-10-17] MEDS: hydrALAZINE 20 MG/ML Vial 10 MG IV (04:54)
[2023-10-17] MEDS: Insulin Lispro 100 UNIT/ML INSULN.PEN SC (06:20)
[2023-10-17 06:56] LABS: Bedside Glucose 157 mg/dL (74-106)
--- NOTE | 2023-10-17 07:35 | PN.HOSP_ITS ---
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/23) Unspecified dementia, unspecified severity, without behavioral disturbance, psychotic disturbance, mood disturbance, and anxiety (10/16/23) Neuralgia and neuritis, unspecified (10/16/23) Disorientation, unspecified (10/16/23) Altered mental status, unspecified (10/16/23) Other mechanical complication of implanted electronic neurostimulator of spinal cord electrode (lead), initial encounter (10/16/23) Objective Data Objective Data Vital Signs: Vital Signs Temp Pulse Resp BP Pulse Ox O2 Del Method 97.4 F L 82 18 156/69 H 100 Room Air 10/17/23 04:20 10/17/23 04:54 10/17/23 04:20 10/17/23 06:18 10/17/23 04:20 10/17/23 04:20 Oxygen Delivery Method Room Air Weight: 157 lb 10.088 oz Body Mass Index (BMI) 26.2 Intake & Output: Intake and Output for Last 24 Hours 10/15/23 10/16/23 10/17/23 23:59 23:59 23:59 Intake Total 2484.67 / 2484.67 Balance 2484.67 / 2484.67 Lab / Micro Data 10/17/23 11:20 10/17/23 09:45 Labs: Laboratory Results - last 24 hr 10/16/23 06:40: Sodium 141, Potassium 3.3 L, Chloride 112 H, Carbon Dioxide 19.0 L, Anion Gap 10, BUN 21 H, Creatinine 1.00, Estim Creat Clear Calc 39.78, Est GFR (MDRD) Af Amer 68, Est GFR (MDRD) Non-Af 56 L, BUN/Creatinine Ratio 21.0 H, Glucose 116 H, Hemoglobin A1c 5.4, Calcium 8.4 L, Phosphorus 2.9, Magnesium 1.4 L, Total Bilirubin 1.60 H, AST 22, ALT 19, Alkaline Phosphatase 71, Total Creatine Kinase 168, Total Protein 6.6, Albumin 3.2, Globulin 3.4, Albumin/Globulin Ratio 0.9, Triglycerides 98, Cholesterol 107, LDL Cholesterol 52, VLDL Cholesterol 20, HDL Cholesterol 35 L, Folate 14.40, TSH 2.03, Prolactin 6.0 10/16/23 11:50: POC Glucose 211 H 10/16/23 16:36: POC Glucose 201 H 10/16/23 18:11: POC Glucose 208 H 10/16/23 21:35: POC Glucose 152 H 10/17/23 06:19: POC Glucose 157 H Micro: Microbiology 10/15/23 21:40 Mucosa - Nasopharyngeal SARS-CoV-2, Influenza & RSV (PCR) - Final ABG Data ABG results: ABG 10/16/23 06:51 Blood Gas Notified Whom Dr. Chacon Physical Exam Narrative Seen and examined. Overnight events noted. Patient awake, oriented x 1. Last evening, patient was anxious, crying and through monitoring coordinator therefore agitated. As per nursing staff, she was found on the floor between the chair and the bed but no injury on exam. Patient was given Haldol and Phenergan for acute agitation. She has advanced dementia and her daughter is main caregiver. Complain of pain in her right and left buttock region and hip region. Chronic pain. Had spinal stimulator for pain but is not working Physical exam General: Drowsy, lethargic. Had Phenergan around 4 AM in the morning. Is confused and disoriented last night. HEENT: Atraumatic, PERRLA, EOMI, Normocephalic Oral: No Gingival or Mucosal Lesions/ Ulcerations Neck: Supple, No JVD, Negative Carotid Bruits Chest wall/Lungs: Air entry diminished in bilateral lung bases. No crepitation/rhonchi Cardiovascular: Regular rate, Regular Rhythm, Normal S1, Normal S2, No M/G/R Abdomen: Bowel Sounds Present, Soft, Non Tender, Non-Distended : No dysuria. No renal angle tenderness. No suprapubic tenderness. Extremities: No edema, Capillary Refill Less than 3 Seconds Skin: No rashes, No breakdown Musculoskeletal: No Tenderness to Palpation of the peripheral extremities. ROM restricted. Degenerative arthritis Spine: Lidoderm patch. Tenderness present on right and left paraspinal and gluteal muscles. No tenderness at hip joints. Neurological: Cranial nerves II-XII grossly intact, DTR 2+/4. No acute focal neurological deficit. Psych/Mental Status: Flat affect dementia. Delirium Assessment & Plan Assessment/Plan (1) Spinal cord stimulator dysfunction: QUALIFIERS: Encounter type: initial encounter Qualified Code(s): T85.192A - Other mechanical complication of implanted electronic neurostimulator of spinal cord electrode (lead), initial encounter (2) Paroxysmal nerve pain: (3) Altered mental status: QUALIFIERS: Altered mental status type: delirium Qualified Code(s): R41.0 - Disorientation, unspecified (4) Metabolic alkalosis with respiratory acidosis: (5) Dementia: QUALIFIERS: Dementia behavioral or psychological symptom: u nspecified whether behavioral, psychotic, or mood disturbance or anxiety D ementia severity: unspecified severity Dementia type: unspecified type Q ualified Code(s): F03.90 - Unspecified dementia, unspecified severity, without behavioral disturbance, psychotic disturbance, mood disturbance, and anxiety PLAN: Plan 88-year-old female being brought by EMS for altered mental status. As per daughter she is briefly unresponsive. EMS stated that she she is drowsy and lethargic. She is not either alert or unresponsive. Patient has mid back probably spinal stimulator in her back that is not working. She has been on tramadol, oxycodone and was not working therefore prescribed fentanyl patch which resulted in hallucinations. Then it was changed to Lyrica 200 mg twice daily on past Wednesday. No fever. She was repeating same words and sentences, echolalia. 1. Paroxysms of Severe and Uncontrollable Pain attributable to Malfunctioning Spinal Nerve Stimulator implanted to control Chronic Back Pain attributes to OA while she lived in [place]: Patient is admitted in PCU. CT lumbar spine shows Severe multilevel spondylosis. Moderate to severe spinal canal stenosis more prominent at L2-3, L3-4 and L4-5. Does not show any acute pathology fracture. On Decadron for pain control. Lidoderm patch. Will try to manage nonopioid analgesic medication. Lyrica 100 mg 3 times daily. PT and OT. Patient can follow-up orthospine or whoever manages the spine stimulator as she states battery might have run down. 10/16: Patient is more lethargic confused and disoriented therefore not complaining of pain. 2. Acute Delirium with Panic Attacks and Hyperventilation in the setting of Chronic Dementia -patient is still confused and disoriented to place. She knows day and night but cannot tell month or year or her age therefore retrograde and anterograde amnesia relates to dementia. PT and OT. TSH normal. Folate normal. B12 pending. 10/16: Patient was confused, agitated. Because of, dexamethasone discontinued. Overall it seems patient is very sensitive to medications and cannot tolerate opioid. Dilaudid also discontinued. On Lyrica. 3. Respiratory alkalosis likely from panic attack: ABG 7.5 10/26/1994 on room air consistent with respiratory alkalosis probably due to panic attack. Currently panic attack is resolved and she is more quite. 10/16: Labs reviewed. Bicarb 16, anion gap normal. Chloride elevated therefore normal anion gap metabolic acidosis with respiratory alkalosis. 4. Essential hypertension - Continue home regimen as previous. 5. Hyperlipidemia - Resume statin and fasting lipid profile shows HDL 35 otherwise in normal limit. 6. Hypothyroidism - Continue Synthroid. TSH normal limit 7. Overweight; with BMI of 27.9 this admission - Weight loss recommended. 8. DM-2; of unknown control with diabetic neuropathy - ADA diet. FSBS q. AC/HS plus moderate-intensity SSI while on steroids to treat #1. Check HgbA1c to objectively assess quality of diabetic control. 9. Depression - Resume home regimen as previous. 10. Remote history of tobacco abuse and - Noted. 11. DVT prophylaxis - Lovenox 40 mg sq daily plus SCD's. Microbiology Past 72 Hours 10/15/23 21:40 Mucosa - Nasopharyngeal SARS-CoV-2, Influenza & RSV (PCR) - Final Laboratory Results 10/16/23 11:50: POC Glucose 211 H 10/16/23 16:36: POC Glucose 201 H 10/16/23 18:11: POC Glucose 208 H 10/16/23 21:35: POC Glucose 152 H 10/17/23 06:19: POC Glucose 157 H 10/17/23 09:45: Sodium 138, Potassium 4.2, Chloride 114 H, Carbon Dioxide 16.0 L , Anion Gap 8, BUN 19 H, Creatinine 0.83, Estim Creat Clear Calc 48.23, Est GFR (MDRD) Af Amer 84, Est GFR (MDRD) Non-Af 70, BUN/Creatinine Ratio 23.0 H, G lucose 133 H, Calcium 8.9, Phosphorus 2.7, Magnesium 2.0 10/17/23 11:20: WBC 10.7, RBC 3.21 L, Hgb 9.8 L, Hct 28.8 L, MCV 89.7, MCH 30.5, MCHC 34.0, RDW Std Deviation 43.3, RDW Coeff of Ross 13.1, Plt Count 252, MPV 10.5, Immature Gran % (Auto) 0.800, Neut % (Auto) 79.0 H, Lymph % (Auto) 11.3 L, Troup % (Auto) 8.6, Eos % (Auto) 0.1, Baso % (Auto) 0.2, Absolute Neuts (auto) 8.4 H, Absolute Lymphs (auto) 1.20, Nucleated RBC % 0 Clinical Impression(s) from Imaging Studies Brain CT 10/15/23 21:19 IMPRESSION: Age-related changes of the brain. Electronically Signed: Iam Witt DO at 23:23 EDT , Chest X-Ray 10/15/23 23:13 IMPRESSION: No radiographic evidence of acute cardiopulmonary disease. Electronically Signed: Iam Witt DO at 23:53 EDT , Lumbar Spine CT 10/16/23 02:09 IMPRESSION: Severe multilevel spondylosis. Moderate to severe spinal canal stenosis is more prominent at L2-3, L3-4, L4-5. Charges/Coding Visit Charges Inpatient E&M: 70544 Subs Hosp L2
--- NOTE | 2023-10-17 07:36 | CPS ---
Attempted SMI and Pep but pt sleepy and unable to perform at this time
[2023-10-17] MEDS: 0.9% Normal Saline (1000mL) 1,000 ML 70 ML IV (10:05)
[2023-10-17 10:23] LABS: Anion Gap 8 (5-15); BUN 19 mg/dL (7-18); Calcium,Total 8.9 mg/dL (8.5-10.1); Chloride 114 mmol/L (98-107); Creatinine, Serum 0.83 mg/dL (0.55-1.02); EST Glomerular Filtration Rate 70 mL/min (>60); Est Glom Filt Rate - Afr Amer 84 mL/min (>60); Estimated Creatinine Clearance 48.23 ml/min; Glucose 133 mg/dL (74-106); Phosphorus 2.7 mg/dL (2.5-4.9); Potassium 4.2 mmol/L (3.5-5.1); Sodium Level 138 mmol/L (136-145)
--- NOTE | 2023-10-17 11:22 | CPS ---
SMI and Pep held, pt sleeping
[2023-10-17 11:31] LABS: Absolute Neutrophil Count 8.4 X10^3/uL (2.0-7.7); Basophil# 0.02 X10^3/uL; Basophil% 0.2 % (0-1); Eosinophil# 0.01 X10^3/uL; Eosinophils% 0.1 % (0-5); Hematocrit 28.8 % (37-47); Hemoglobin 9.8 g/dL (12.0-15.0); Lymphocyte % 11.3 % (19-41); Mean Corpuscular Hgb 30.5 pg (27.0-32.0); Mean Corpuscular Volume 89.7 fL (81-99); Mean Platelet Vol. 10.5 fl (6.2-12.0); Monocyte# 0.92 X10^3/uL; Monocyte% 8.6 % (0-10); NRBC Flagged by Analyzer 0 % (0-5); Neutrophil # 8.42 X10^3/uL (2.7-7.7); Platelet Count 252 K/mm3 (150-450); RBC Distribution Width CV 13.1 % (11.6-14.6); RBC Distribution Width SD 43.3 fl (35.1-43.9); Red Blood Count 3.21 M/mm3 (4.2-5.4); White Blood Count 10.7 K/mm3 (4.4-11.0)
[2023-10-17] MEDS: 0.9% Saline Lock 10 ML Syringe IV (12:47)
--- NOTE | 2023-10-17 12:58 | PCM.DC ---
Discharge Instructions Diet Discharge Diet: 1800 Calorie Control Diet and 2000 mg Sodium Diet Activity Discharge Activity: Return to Normal Activity Weight Bearing Status: Weight bearing as tolerated Dressing / Incision Call your doctor if you observe: Fever of 101 or Higher, Coldness, Increased Pain, Numbness or Tingling, Change in Color, Inability to urinate, Inability to have a bowel movement, Shortness of breath, Dizziness, Fainting spells, Swelling in the ankles, Chest pain, Prolonged hiccupping, Increased palpitations (irregular heartbeat) and Calf discomfort Follow Up Care When: IN 2 WEEKS Test Results: Test results from this visit will be discussed in further detail at your follow-up appointment, if applicable. Discharge Plan Admission Admit Date/Time: 10/16/23 14:04 Primary Reason for Your Visit: Altered mental status/acute encephalopathy Attending Provider: Joshua Osorio Primary Care Provider: Octavia Goins Consulting Providers: Corrie Reed; Starla Clifton; Cande Batres; Farhan Sheriff; Dewey Melton; Quentin Sharpe; ROSIE AHUJA; Juanis Newell; Ximena Luevano; Last Brasher; Laura De La Cruz; Chuy Guevara Instructions Additional Instructions / Restrictions: Patient can follow-up with [facility] for spinal stimulator which is probably not working will need to change her back to Discharge Orders/Prescriptions Prescriptions: Continued atorvastatin 80 mg tablet 80 mg PO DAILY trazodone 50 mg tablet 50 mg PO QHS clopidogrel 75 mg tablet 75 mg PO DAILY carvedilol 3.125 mg tablet 3.125 mg PO DAILY metoprolol tartrate 25 mg tablet 25 mg PO BID pregabalin 100 mg capsule 100 mg PO BID lisinopril 20 mg tablet 20 mg PO QHS furosemide 20 mg tablet 20 mg PO DAILY Januvia 100 mg tablet 100 mg PO DAILY levothyroxine [Levo-T] 50 mcg tablet 50 mcg PO DAILY aspirin [Aspirin Childrens] 81 mg tablet,chewable 1 tab PO DAILY Changed escitalopram oxalate 10 mg tablet 10 mg PO DINNER 30 Days Qty: 0 0RF Referrals / Follow Up: Octavia Goins DO [Primary Care Provider] - Raciel Zhang MD [Med Staff - Active Staff] - Within 2 Weeks (Severe back pain severe lumbar spinal stenosis) Camden Crowell DO [Med Staff - [employer]] - Within 2 Weeks Norberto Farias MD [Non-Staff] - Within 1 Month (For advanced pneumonia) Disposition Disposition (needs filled in before D/C Order can be placed): Home, Self Care
--- NOTE | 2023-10-17 13:08 | DS.PCM_ITS ---
Providers Date of Admission: 10/16/23 Date of Discharge: 10/17/23 Primary Care Physician: Dr. Octavia Goins DO Reason For Visit: ACUTE METABOLIC ENCEPHALOPATHY MALFUN OF NERVE Diagnosis Discharge Diagnosis (1) Spinal cord stimulator dysfunction: Status: Acute Code(s): T85.192A - Other mechanical complication of implanted electronic neurostimulator of spinal cord electrode (lead), initial encounter Qualifiers: Encounter type: initial encounter Qualified Code(s): T85.192A - Other mechanical complication of implanted electronic neurostimulator of spinal cord electrode (lead), initial encounter (2) Paroxysmal nerve pain: Status: Acute Code(s): M79.2 - Neuralgia and neuritis, unspecified (3) Altered mental status: Status: Acute Code(s): R41.82 - Altered mental status, unspecified Qualifiers: Altered mental status type: delirium Qualified Code(s): R41.0 - Disorientation, unspecified (4) Metabolic alkalosis with respiratory acidosis: Status: Acute Code(s): E87.4 - Mixed disorder of acid-base balance (5) Dementia: Status: Acute Code(s): F03.90 - Unspecified dementia, unspecified severity, without behavioral disturbance, psychotic disturbance, mood disturbance, and anxiety Qualifiers: Dementia type: unspecified type Dementia severity: unspecified severity Dementia behavioral or psychological symptom: unspecified whether behavioral, psychotic, or mood disturbance or anxiety Qualified Code(s): F03.90 - Unspecified dementia, unspecified severity, without behavioral disturbance, psychotic disturbance, mood disturbance, and anxiety Plan 88-year-old female being brought by EMS for altered mental status. As per daughter she is briefly unresponsive. EMS stated that she she is drowsy and lethargic. She is not either alert or unresponsive. Patient has mid back probably spinal stimulator in her back that is not working. She has been on tramadol, oxycodone and was not working therefore prescribed fentanyl patch which resulted in hallucinations. Then it was changed to Lyrica 200 mg twice daily on past Wednesday. No fever. She was repeating same words and sentences, echolalia. 1. Paroxysms of Severe and Uncontrollable Pain attributable to Malfunctioning Spinal Nerve Stimulator implanted to control Chronic Back Pain attributes to OA while she lived in [place]: Patient is admitted in PCU. CT lumbar spine shows Severe multilevel spondylosis. Moderate to severe spinal canal stenosis more prominent at L2-3, L3-4 and L4-5. Does not show any acute pathology fracture. On Decadron for pain control. Lidoderm patch. Will try to manage nonopioid analgesic medication. Lyrica 100 mg 3 times daily. PT and OT. Patient can follow-up orthospine or whoever manages the spine stimulator as she states battery might have run down. 10/16: Patient was lethargic confused and disoriented therefore not complaining of pain in the morning but around noon time she much improved. She is eating her lunch. I talked to the patient's daughter and explained the condition of back pain CT lumbar spine findings advised to follow-up with pain management. Outpatient follow-up with Dr. Raciel mendes. 2. Acute Delirium with Panic Attacks and Hyperventilation in the setting of Chronic Dementia -patient is still confused and disoriented to place. She knows day and night but cannot tell month or year or her age therefore retrograde and anterograde amnesia relates to dementia. PT and OT. TSH normal. Folate normal. B12 pending. 10/16: Patient was confused, agitated. Because of, dexamethasone discontinued. Overall it seems patient is very sensitive to medications and cannot tolerate opioid. Dilaudid also discontinued. On Lyrica. 3. Respiratory alkalosis likely from panic attack: ABG 7.5 10/26/1994 on room air consistent with respiratory alkalosis probably due to panic attack. Currently panic attack is resolved and she is more quite. 10/16: Labs reviewed. Bicarb 16, anion gap normal. Chloride elevated therefore normal anion gap metabolic acidosis with respiratory alkalosis. About 1 PM, I saw the patient again and discussed with patient's daughter. She is quite and eating her lunch and is smiling. For last 2 days, she gets more confused disoriented agitated in the evening time and discussed about the workup done in the hospital and did not find any provoking factor but probably worsening of dementia and delirium related with medication or pain. Patient agreed to take her home. Advised follow-up with a neurologist and psychiatrist as an outpatient. TSH and folic acid normal. B12 pending. 4. Essential hypertension - Continue home regimen as previous. 5. Hyperlipidemia - Resume statin and fasting lipid profile shows HDL 35 otherwise in normal limit. 6. Hypothyroidism - Continue Synthroid. TSH normal limit 7. Overweight; with BMI of 27.9 this admission - Weight loss recommended. 8. DM-2; of unknown control with diabetic neuropathy - ADA diet. FSBS q. AC/HS plus moderate-intensity SSI while on steroids to treat #1. Check HgbA1c to objectively assess quality of diabetic control. 9. Depression - Resume home regimen as previous. 10. Remote history of tobacco abuse and - Noted. 11. DVT prophylaxis - Lovenox 40 mg sq daily plus SCD's. Discharge medication reconciliation done. Discharge follow-up instructions completed. Discharge process discussed with the patient and all questions were answered to patient's satisfaction. Follow with PCP in 1 to 2 weeks Total time spent, exact 35 minutes on discharge meds reconciliation, examination, coordination of care with nurses and ancillary staff, review of imaging and blood test and discussion with the patient on follow-up instructions. Microbiology Past 72 Hours 10/15/23 21:40 Mucosa - Nasopharyngeal SARS-CoV-2, Influenza & RSV (PCR) - Final Laboratory Results 10/16/23 11:50: POC Glucose 211 H 10/16/23 16:36: POC Glucose 201 H 10/16/23 18:11: POC Glucose 208 H 10/16/23 21:35: POC Glucose 152 H 10/17/23 06:19: POC Glucose 157 H 10/17/23 09:45: Sodium 138, Potassium 4.2, Chloride 114 H, Carbon Dioxide 16.0 L , Anion Gap 8, BUN 19 H, Creatinine 0.83, Estim Creat Clear Calc 48.23, Est GFR (MDRD) Af Amer 84, Est GFR (MDRD) Non-Af 70, BUN/Creatinine Ratio 23.0 H, G lucose 133 H, Calcium 8.9, Phosphorus 2.7, Magnesium 2.0 10/17/23 11:20: WBC 10.7, RBC 3.21 L, Hgb 9.8 L, Hct 28.8 L, MCV 89.7, MCH 30.5, MCHC 34.0, RDW Std Deviation 43.3, RDW Coeff of Ross 13.1, Plt Count 252, MPV 10.5, Immature Gran % (Auto) 0.800, Neut % (Auto) 79.0 H, Lymph % (Auto) 11.3 L, Dickens % (Auto) 8.6, Eos % (Auto) 0.1, Baso % (Auto) 0.2, Absolute Neuts (auto) 8.4 H, Absolute Lymphs (auto) 1.20, Nucleated RBC % 0 Clinical Impression(s) from Imaging Studies Brain CT 10/15/23 21:19 IMPRESSION: Age-related changes of the brain. Electronically Signed: Iam Witt DO at 23:23 EDT , Chest X-Ray 10/15/23 23:13 IMPRESSION: No radiographic evidence of acute cardiopulmonary disease. Electronically Signed: Iam Witt DO at 23:53 EDT , Lumbar Spine CT 10/16/23 02:09 IMPRESSION: Severe multilevel spondylosis. Moderate to severe spinal canal stenosis is more prominent at L2-3, L3-4, L4-5. Medications at Discharge Home Medications aspirin 81 mg chewable tablet (Aspirin Childrens) 1 tab PO DAILY 10/15/23 atorvastatin 80 mg tablet 80 mg PO DAILY 10/15/23 carvedilol 3.125 mg tablet 3.125 mg PO DAILY 10/15/23 clopidogrel 75 mg tablet 75 mg PO DAILY 10/15/23 furosemide 20 mg tablet 20 mg PO DAILY 10/15/23 levothyroxine 50 mcg tablet (Levo-T) 50 mcg PO DAILY 10/15/23 lisinopril 20 mg tablet 20 mg PO QHS 10/15/23 metoprolol tartrate 25 mg tablet 25 mg PO BID 10/15/23 pregabalin 100 mg capsule 100 mg PO BID 10/15/23 sitagliptin phosphate 100 mg tablet (Januvia) 100 mg PO DAILY 10/15/23 trazodone 50 mg tablet 50 mg PO QHS 10/15/23 escitalopram oxalate 10 mg tablet 10 mg PO DINNER 30 days #0 tabs 10/17/23 Physical Exam Narrative Patient is quite, her mood is congruent. Not having any hallucinations. Following simple command. Discussed with the patient's daughter near the bedside in presence of patient's RN Lizet Please see progress of the same date for detailed physical exam findings Weight / BMI Weight Weight: 157 lb 10.088 oz Body Mass Index (BMI) 26.2 ABG / Lab / Microbiology Data 10/17/23 11:20 10/17/23 09:45 Laboratory: Laboratory Results - last 24 hr 10/16/23 16:36: POC Glucose 201 H 10/16/23 18:11: POC Glucose 208 H 10/16/23 21:35: POC Glucose 152 H 10/17/23 06:19: POC Glucose 157 H 10/17/23 09:45: Sodium 138, Potassium 4.2, Chloride 114 H, Carbon Dioxide 16.0 L , Anion Gap 8, BUN 19 H, Creatinine 0.83, Estim Creat Clear Calc 48.23, Est GFR (MDRD) Af Amer 84, Est GFR (MDRD) Non-Af 70, BUN/Creatinine Ratio 23.0 H, G lucose 133 H, Calcium 8.9, Phosphorus 2.7, Magnesium 2.0 10/17/23 11:20: WBC 10.7, RBC 3.21 L, Hgb 9.8 L, Hct 28.8 L, MCV 89.7, MCH 30.5, MCHC 34.0, RDW Std Deviation 43.3, RDW Coeff of Ross 13.1, Plt Count 252, MPV 10.5, Immature Gran % (Auto) 0.800, Neut % (Auto) 79.0 H, Lymph % (Auto) 11.3 L, Dickens % (Auto) 8.6, Eos % (Auto) 0.1, Baso % (Auto) 0.2, Absolute Neuts (auto) 8.4 H, Absolute Lymphs (auto) 1.20, Nucleated RBC % 0 Microbiology: Microbiology 10/15/23 21:40 Mucosa - Nasopharyngeal SARS-CoV-2, Influenza & RSV (PCR) - Final D/C Instructions Discharge Diet: 1800 Calorie Control Diet and 2000 mg Sodium Diet Weight Bearing Status: Weight bearing as tolerated Call your doctor if you observe: Fever of 101 or Higher, Coldness, Increased Pain, Numbness or Tingling, Change in Color, Inability to urinate, Inability to have a bowel movement, Shortness of breath, Dizziness, Fainting spells, Swelling in the ankles, Chest pain, Prolonged hiccupping, Increased palpitations (irregular heartbeat) and Calf discomfort When: IN 2 WEEKS Meaningful Use Info Meaningful Use Meaningful Use Diagnoses (Choose all that apply): None applicable Ischemic Stroke Statin Dosing Therapy Reference: STATIN DOSE THERAPY REFERENCE: * Patients > 75 years receive moderate or high dose statin therapy. * Patients 75 years or YOUNGER should receive HIGH intensity statin dose unless contraindicated. You will be required to document reason for non-treatment if statin daily dose does not meet guidelines. HIGH DOSE STATIN THERAPY DAILY Atorvastatin > than or = to 40 mg Rosuvastatin > than or = to 20 mg Amlodipine + Atorvastatin > than or = to 2.5/40 mg Ezetimibe + Simvastatin 10/80 mg Simvastatin 80mg Discharge Plan Admission Admit Date/Time: 10/16/23 14:04 Primary Reason for Your Visit: Altered mental status/acute encephalopathy Attending Provider: Joshua Osorio Primary Care Provider: Octavia Goins Consulting Providers: Corrie Reed; Starla Clifton; Cande Batres; Farhan Sheriff; Dewey Melton; Quentin Sharpe; ROSIE AHUJA; Juanis Newell; Ximena Luevano; Last Brasher; Laura De La Cruz; Chuy Guevara Instructions Additional Instructions / Restrictions: Patient can follow-up with [facility] for spinal stimulator which is probably not working will need to change her back to Discharge Orders/Prescriptions Prescriptions: Continued atorvastatin 80 mg tablet 80 mg PO DAILY trazodone 50 mg tablet 50 mg PO QHS clopidogrel 75 mg tablet 75 mg PO DAILY carvedilol 3.125 mg tablet 3.125 mg PO DAILY metoprolol tartrate 25 mg tablet 25 mg PO BID pregabalin 100 mg capsule 100 mg PO BID lisinopril 20 mg tablet 20 mg PO QHS furosemide 20 mg tablet 20 mg PO DAILY Januvia 100 mg tablet 100 mg PO DAILY levothyroxine [Levo-T] 50 mcg tablet 50 mcg PO DAILY aspirin [Aspirin Childrens] 81 mg tablet,chewable 1 tab PO DAILY Changed escitalopram oxalate 10 mg tablet 10 mg PO DINNER 30 Days Qty: 0 0RF Referrals / Follow Up: Octavia Goins DO [Primary Care Provider] - Raciel Zhang MD [Med Staff - Active Staff] - Within 2 Weeks (Severe back pain severe lumbar spinal stenosis) Camden Crowell DO [Med Staff - Medical Technologist Hematology] - Within 2 Weeks Norberto Farias MD [Non-Staff] - Within 1 Month (For advanced pneumonia) Disposition Disposition (needs filled in before D/C Order can be placed): Home, Self Care Charges/Coding Addendum Addendum: Cancel the billing charge of progress note of the same date. Visit Charges Inpatient E&M: 30656 Disch Hosp >30min
[2023-10-18 12:15] LABS: Vitamin B12 180 pg/mL (211-911)
== END 2023-10-17 15:37 | disposition home or self-care (01) | DRG 92 ==
LOC: ED 10-16 01:07 → PCU 10-16 02:48
PROVIDERS: Admitting Provider Internal Medicine; Emergency Provider Emergency Medicine; PCP Family Medicine; Visit Provider Internal Medicine
DX: T85.192A Other mechanical complication of implanted electronic neurostimulator of spinal cord electrode (lead), initial encounter (principal); E87.4 Mixed disorder of acid-base balance; F03.911 Unspecified dementia, unspecified severity, with agitation; F05 Delirium due to known physiological condition; E11.40 Type 2 diabetes mellitus with diabetic neuropathy, unspecified; F32.A Depression, unspecified; I10 Essential (primary) hypertension; E03.9 Hypothyroidism, unspecified; M79.2 Neuralgia and neuritis, unspecified; M48.061 Spinal stenosis, lumbar region without neurogenic claudication; E78.5 Hyperlipidemia, unspecified; Z87.891 Personal history of nicotine dependence; E66.3 Overweight; Z79.890 Hormone replacement therapy; Z79.82 Long term (current) use of aspirin; Z96.82 Presence of neurostimulator; G89.29 Other chronic pain; F41.0 Panic disorder [episodic paroxysmal anxiety]; Z79.84 Long term (current) use of oral hypoglycemic drugs; Z68.27 Body mass index [BMI] 27.0-27.9, adult; Y82.9 Unspecified medical devices associated with adverse incidents
CPT/HCPCS: 36415; 36600; 70450; 71045; 72131; 80048; 80053; 80061; 80076; 80307; 81001; 82077; 82550; 82607; 82746; 82803; 82962; 83036; 83605; 83690; 83735; 83880; 84100; 84146; 84443; 84484; 85025; 85610; 85730; 87631; 93005; 94668; 95819; 97162; 97165; 99285; J7030; P9612; A4216